=== PATIENT | male | born 1945 | race Caucasian/White ===

== ENCOUNTER 2017-06-11 09:59 | Emergency (ER) ==
[2017-06-11 10:08] VITALS: BP 166/90; TEMP 98.2; BMI 22.3
--- NOTE | 2017-06-11 10:28 | ED.PDOC ---
General ED Provider: Dr. RENETTA BARAKAT JR Chief Complaint: Respiratory Complaint Stated Complaint: PAIN IN HIS RIBS, AND HAVING DIFFICULTY BREATHING DEEPLY. PRODUCTIVE COUGH, UNSURE COLOR OF SPUTUM.[End]2-3 days. 98.2 69 20 96 166/90 . [ End ]cough wheeze uri inhalers Time Seen by Physician: 10:20 Mode of Arrival: Walk-In Information Source: Patient Exam Limitations: No limitations Primary Care Provider: JESSY JULIO Nursing and Triage Documentation Reviewed and Agree: No Review of Systems - Review Of Systems Constitutional: Reports: Malaise Eyes: Reports: No symptoms Ears, Nose, Mouth, Throat: Reports: No symptoms Respiratory: Reports: Cough, Short of air, Wheezing Cardiac: Reports: Chest pain GI: Reports: No symptoms, Abdominal pain : Reports: No symptoms Musculoskeletal: Reports: No symptoms, Other (chest wall pain) Skin: Reports: No symptoms Neurological: Reports: No symptoms Endocrine: Reports: No symptoms Hematologic/Lymphatic: Reports: No symptoms All Other Systems: Other Past Medical History - Past Medical History Endocrine: Reports: None Cardiovascular: Reports: CAD, [place], CHF Respiratory: Reports: COPD Hematological: Reports: None Gastrointestinal: Reports: None Genitourinary: Reports: None Neuro/Psych: Reports: None Musculoskeletal: Reports: Arthritis (on the neck with pinched nerve ) Cancer: Reports: None Other Pertinent Past Medical History: son recently disappeared ? - Surgical History General Surgical History: Reports: Stent (CARDIAC STENT), Orthopedic (Knee surgery ) - Family History Family History: Reports: Heart - Social History Smoking Status: Current every day smoker Hx Substance Use: No - Immunizations Tetanus Shot up to Date: No Physical Exam - Physical Exam Appearance: Well-appearing, Thin Pain Distress: Moderate Eyes: ABHINAV, EOMI, Conjunctiva clear ENT: Ears normal, Nose normal, Oropharynx normal Neck: Supple Respiratory: Airway patent, Breath sounds equal, Breath sounds diminished, Rhonchi, Wheezes Cardiovascular: RRR, Pulses normal, No rub, No murmur GI/: Soft, No masses, Bowel sounds normal, No Organomegaly, Tender Musculoskeletal: Normal strength, ROM intact, No edema, No calf tenderness Skin: Warm, Dry, Normal color Neurological: Sensation intact, Motor intact, Reflexes intact, Cranial nerves intact, Alert, Oriented Psychiatric: Affect appropriate, Mood appropriate Critical Care Note - Critical Care Note Total Time (mins): 20 Course - Course Hematology/Chemistry: 06/11/17 10:50 06/11/17 10:50 Orders, Labs, Meds: Lab Review 06/11/17 06/11/17 06/11/17 10:35 10:45 10:50 WBC 6.35 RBC 5.14 Hgb 15.7 Hct 45.5 MCV 88.5 MCH 30.5 MCHC 34.5 RDW Coeff of Lyn 13.2 Plt Count 239 Immature Gran % (Auto) 0.9 Neut % (Auto) 56.6 Lymph % (Auto) 28.5 Jones % (Auto) 10.9 H Eos % (Auto) 2.2 Baso % (Auto) 0.9 Immature Gran # (Auto) 0.1 Neut # 3.6 Lymph # 1.8 Jones # 0.7 Eos # 0.1 Baso # 0.1 Puncture Site Rrad O2 Saturation 94.0 L ABG pH 7.393 ABG pCO2 40.5 ABG pO2 72.0 L ABG HCO3 24.7 ABG Total CO2 26 ABG Base Excess 0 Michel Test + FiO2 % 21.0 Sodium Potassium Chloride Carbon Dioxide Anion Gap BUN Creatinine Estimated GFR (MDRD) BUN/Creatinine Ratio Glucose Calcium Total Bilirubin AST ALT Alkaline Phosphatase Total Creatine Kinase Troponin I Total Protein Albumin Globulin Albumin/Globulin Ratio Amylase Lipase Urine Color Urine Clarity Urine pH Ur Specific [place] Urine Protein Urine Glucose (UA) Urine Ketones Urine Blood Urine Nitrite Urine Bilirubin Urine Urobilinogen Ur Leukocyte Esterase Urine Microscopic RBC Urine Microscopic WBC Ur Squamous Epith Cells Urine Bacteria Urine Mucus Urine Sperm Influenza A (Rapid) Negative Influenza B (Rapid) Negative 06/11/17 06/11/17 10:50 11:15 WBC RBC Hgb Hct MCV MCH MCHC RDW Coeff of Lyn Plt Count Immature Gran % (Auto) Neut % (Auto) Lymph % (Auto) [place] % (Auto) Eos % (Auto) Baso % (Auto) Immature Gran # (Auto) Neut # Lymph # Jones # Eos # Baso # Puncture Site O2 Saturation ABG pH ABG pCO2 ABG pO2 ABG HCO3 ABG Total CO2 ABG Base Excess Michel Test FiO2 % Sodium 133 L Potassium 3.4 L Chloride 96 L Carbon Dioxide 31 Anion Gap 9.4 BUN 8 Creatinine 0.71 Estimated GFR (MDRD) 110.00 BUN/Creatinine Ratio 11.26 Glucose 83 Calcium 9.8 Total Bilirubin 0.73 AST 13 L ALT 9 L Alkaline Phosphatase 120 H Total Creatine Kinase 20 Troponin I < 0.0100 Total Protein 6.7 Albumin 3.4 Globulin 3.3 Albumin/Globulin Ratio 1.03 Amylase 81 Lipase 17 Urine Color Dark Urine Clarity Clear Urine pH 7.0 Ur Specific [place] 1.020 Urine Protein Negative Urine Glucose (UA) Negative Urine Ketones Negative Urine Blood Negative Urine Nitrite Positive Urine Bilirubin Negative Urine Urobilinogen 1.0 Ur Leukocyte Esterase 1+ Urine Microscopic RBC 2-5 Urine Microscopic WBC 5-10 Ur Squamous Epith Cells Not present Urine Bacteria 1+ Urine Mucus 2+ Urine Sperm Trace Influenza A (Rapid) Influenza B (Rapid) Orders Category Date Time Status ABG DRAW REQUEST Stat CARDIO 06/11/17 10:36 Completed EKG-(ED ONLY) Stat CARDIO 06/11/17 10:34 Completed ED DATABASE ANALYST APPLIED EMERGENCY 06/11/17 10:33 Active ED IV/MEDIPORT/POWERPORT .ONCE EMERGENCY 06/11/17 10:33 Active ABG Stat LAB 06/11/17 10:35 Completed AMYLASE Stat LAB 06/11/17 10:50 Completed BLOOD CULTURE Stat LAB 06/11/17 11:00 Received CBC W/ AUTO DIFF Stat LAB 06/11/17 10:50 Completed COMPREHENSIVE METABOLIC PANEL Stat LAB 06/11/17 10:50 Completed CREATINE KINASE Stat LAB 06/11/17 10:50 Completed LIPASE Stat LAB 06/11/17 10:50 Completed MOLECULAR GROUP A STREP Stat LAB 06/11/17 10:45 Results RAPID FLU A/B Stat LAB 06/11/17 10:45 Completed RAPID STREP SCREEN [STREP SCREEN] Stat LAB 06/11/17 10:45 Results SPUTUM CULTURE Stat LAB 06/11/17 10:45 Received TROPONIN I Stat LAB 06/11/17 10:50 Completed URINALYSIS C & S IF INDICATED Stat LAB 06/11/17 11:15 Completed URINE CULTURE Stat LAB 06/11/17 11:15 Received 0.9 % Sodium Chloride [Saline Flush] MEDS 06/11/17 10:33 Active 1 syr IVF PRN PRN Nitrofurantoin Monohyd/M-Cryst [Macrobid] MEDS 06/11/17 11:45 Discontinued 100 mg PO ONCE STA Tramadol HCl [Ultram] MEDS 06/11/17 11:42 Discontinued 50 mg PO ONCE STA CHEST, 2 VIEWS PA & LAT Stat RADS 06/11/17 10:35 Completed Medications Generic Name Dose Route Start Last Admin Trade Name Freq PRN Reason Stop Dose Admin Sodium Chloride 1 syr 06/11/17 10:33 06/11/17 10:48 Saline Flush IVF 1 syr PRN PRN Administration To flush IV Discontinued Medications Generic Name Dose Route Start Last Admin Trade Name Alberto PRN Reason Stop Dose Admin Nitrofurantoin Macrocrystals 100 mg 06/11/17 11:45 06/11/17 11:51 Macrobid PO 06/11/17 11:46 100 mg ONCE STA Administration Tramadol HCl 50 mg 06/11/17 11:42 06/11/17 11:47 Ultram PO 06/11/17 11:43 50 mg ONCE STA Administration Vital Signs: Temp Pulse Resp BP Pulse Ox 06/11/17 10:00 98.2 F 69 20 166/90 H 96 Departure - Departure Time of Disposition: 11:43 Disposition: HOME SELF-CARE Discharge Problem: UTI (urinary tract infection) Qualifiers: Urinary tract infection type: acute cystitis Hematuria presence: without hematuria Qualified Code(s): N30.00 - Acute cystitis without hematuria Instructions: Urinary Tract Infection in Men (ED) Condition: Good Pt referred to PMD for follow-up: Yes Additional Instructions: Please follow-up with Dr. Julio in 1-5 days. Macrobid for infection Ultram for pain Prescriptions: Nitrofurantoin Monohyd/M-Cryst [Macrobid] 100 mg PO BID #14 capsule Tramadol HCl [Ultram] 50 mg PO Q6H PRN #14 tablet PRN Reason: PAIN Allergies/Adverse Reactions: Allergies No Known Allergies Allergy (Verified 06/11/17 10:05) Home Medications: Ambulatory Orders Atenolol/Chlorthalidone [Atenolol-Chlorthal 50-25 Tb] 0.5 tab PO DAILY 08/30/14 Atorvastatin Calcium 40 mg PO DAILY 08/30/14 Esomeprazole Magnesium [Nexium] 40 mg PO DAILY 08/30/14 Nitroglycerin [Nitrostat] 0.4 mg SL PRN PRN 08/30/14 Potassium Chloride [Klor-Con 10] 20 meq PO BID 08/30/14 Sotalol HCl [Sotalol] 80 mg PO BID 08/30/14 Albuterol Sulfate [Proair Hfa] 2 puff IH Q4H PRN 07/14/15 Aspirin [Aspirin Chewable] 81 mg PO DAILYWM 07/14/15 Calcium Carb, Citrate/Vit D3 [Citracal + D ER Tablet] 1 each PO DAILY 07/14/15 Fenofibrate Nanocrystallized [Tricor] 145 mg PO DAILY 07/14/15 Hydrocodone/Acetaminophen [[place] 5-325 Tablet] 1 tab PO Q6HR PRN #12 tablet 12/22 Tiotropium [place] [Spiriva] 18 mcg IH DAILY 07/14/15 Cyclobenzaprine HCl 10 mg PO TID 06/11/17 Nitrofurantoin Monohyd/M-Cryst [Macrobid] 100 mg PO BID #14 capsule 06/11/17 Tramadol HCl [Ultram] 50 mg PO Q6H PRN #14 tablet 06/11/17
[2017-06-11 10:52] LABS: ABG BASE EXCESS 0 (-2.0-2.0); ABG PCO2 40.5 mmHg (35-45); ABG PH 7.393 (7.35-7.45)
[2017-06-11 10:53] LABS: ABG HCO3 24.7 (22.0-26.0); ABG TCO2 26 (22.0-28.0)
[2017-06-11 11:09] LABS: BASOPHILS # (AUTO) 0.1 K/uL (0-0.2); BASOPHILS % (AUTO) 0.9 % (0.0-3.0); EOSINOPHILS # (AUTO) 0.1 K/ul (0.0-0.7); EOSINOPHILS % (AUTO) 2.2 % (0.0-7.0); HEMATOCRIT 45.5 % (42.0-52.0); HEMOGLOBIN 15.7 g/dl (14.0-18.0); IMMATURE GRANULOCYTE % (AUTO) 0.9 % (0.0-5.0); LYMPHOCYTES # (AUTO) 1.8 K/uL (0.60-3.4); LYMPHOCYTES % (AUTO) 28.5 (10.0-50.0); MEAN CORPUSCULAR HEMOGLOBIN 30.5 pg (27.0-31.0); MEAN CORPUSCULAR HGB CONC 34.5 (31.8-35.4); MEAN CORPUSCULAR VOLUME 88.5 fl (80.0-94.0); MONOCYTES # (AUTO) 0.7 K/uL (0.4-2.0); MONOCYTES % (AUTO) 10.9 (0-10); NEUTROPHILS # (AUTO) 3.6 K/ul (2.0-6.9); NEUTROPHILS % (AUTO) 56.6; PLATELET COUNT 239 10^3/uL (140-440); RED BLOOD COUNT 5.14 10^6/ul (4.70-6.10); WHITE BLOOD COUNT 6.35 K/ul (4.2-10.2)
[2017-06-11 11:26] LABS: BILIRUBIN,URINE Negative (NEGATIVE); KETONES,URINE Negative (NEGATIVE); LEUKOCYTE ESTERASE ,URINE 1+ (NEGATIVE); NITRITE,URINE Positive (NEGATIVE); PROTEIN,URINE Negative (NEGATIVE); URINE, BLOOD Negative (NEGATIVE)
--- NOTE | 2017-06-11 11:26 | DI ---
EXAM: Chest two views HISTORY: Cough, short of air COMPARISON: 07/14/2015 TECHNIQUE: Two views of the chest were performed FINDINGS: Lungs are hyperinflated. No airspace consolidation. There is no pleural effusion or pneu mothorax. The heart is normal in size. The mediastinal contour is normal, noting atherosclerosis. There are no acute abnormalities of the bones. IMPRESSION: 1. No acute cardiopulmonary process. 2. Chronic obstructive pulmonary disease
[2017-06-11 11:28] LABS: FLU INTERNAL QC INTERNAL QC VALID; RAPID FLU A NEGATIVE (NEGATIVE); RAPID FLU B NEGATIVE (NEGATIVE)
[2017-06-11 11:33] LABS: ALANINE AMINOTRANSFERASE 9 U/L (12-78); ALBUMIN 3.4 g/dL (3.4-5.0); ALBUMIN/GLOBULIN RATIO 1.03; ALKALINE PHOSPHATASE 120 U/L (56-119); AMYLASE 81 U/L (25-115); ANION GAP 9.4; ASPARTATE AMINO TRANSFERASE 13 U/L (15-37); BILIRUBIN,TOTAL 0.73 mg/dL (0.00-1.20); BLOOD UREA NITROGEN 8 mg/dL (7-18); BUN/CREATININE RATIO 11.26; CALCIUM 9.8 mg/dL (8.2-10.2); CARBON DIOXIDE 31 mmol/L (23-31); CHLORIDE 96 mmol/L (98-107); CREATINE KINASE 20 U/L; CREATININE 0.71 mg/dL (0.60-1.10); GLUCOSE 83 mg/dL (82-115); LIPASE 17 U/L (8-78); POTASSIUM 3.4 mmol/L (3.5-5.1); SODIUM 133 mmol/L (136-145); TOTAL PROTEIN 6.7 g/dL (5.8-8.1)
[2017-06-11 11:34] LABS: ADD URINE MICROSCOPIC YES
[2017-06-11 11:39] LABS: BACTERIA,URINE 1+ (NOT PRESENT)
[2017-06-11 11:40] LABS: SPERM,URINE TRACE (NOT PRESENT)
[2017-06-11] MEDS ORDERED: ULTRAM PO STA (11:42)
[2017-06-11] MEDS ORDERED: MACROBID PO STA (11:45)
== END 2017-06-11 12:30 | disposition home or self-care (01) ==
LOC: ED 09:59
DX: N30.00 Acute cystitis without hematuria (principal); R07.89 Other chest pain; R05 Cough; R06.02 Shortness of breath; R06.2 Wheezing; I25.10 Atherosclerotic heart disease of native coronary artery without angina pectoris; I50.9 Heart failure, unspecified; J44.9 Chronic obstructive pulmonary disease, unspecified; I25.2 Old myocardial infarction; F17.210 Nicotine dependence, cigarettes, uncomplicated; Z79.899 Other long term (current) drug therapy
CPT/HCPCS: 36415; 80053; 81001; 82150; 82550; 82803; 83690; 84484; 85025; 87040; 87070; 87086; 87186; 87651; 87804; 87880; 93005; 93010; 99284

== ENCOUNTER 2017-06-23 09:56 | Outpatient (CLI) ==
[2017-06-23] MEDS ORDERED: PROLIA SUBCUT STA (10:06)
[2017-06-23 10:11] VITALS: BP 118/71; TEMP 97.8
== END 2017-06-23 09:57 | disposition home or self-care (01) ==
LOC: OPMED 09:56
PROVIDERS: ATTEND Internal Medicine
DX: M81.0 Age-related osteoporosis without current pathological fracture (principal); Z87.81 Personal history of (healed) traumatic fracture
CPT/HCPCS: 96372

== ENCOUNTER 2017-06-24 11:46 | Emergency (ER) ==
[2017-06-24 11:46] VITALS: BMI 22.3
[2017-06-24 11:50] VITALS: BP 170/84; TEMP 96.8
--- NOTE | 2017-06-24 11:57 | ED.PDOC ---
General ED Provider: Dr. RENETTA BARAKAT JR Chief Complaint: Hypertension Stated Complaint: bp high ; shortness of breath, tightness to abdomen this morning called dr hartman and was told to come to er to be evaluated [ End ]96.8 74 22 95% 170/84 01/17 Time Seen by Physician: 11:57 Mode of Arrival: Walk-In Information Source: Patient Exam Limitations: No limitations Primary Care Provider: JESSY HARTMAN Nursing and Triage Documentation Reviewed and Agree: No Review of Systems - Review Of Systems Constitutional: Reports: Malaise Eyes: Reports: No symptoms Ears, Nose, Mouth, Throat: Reports: No symptoms Respiratory: Reports: Short of air Cardiac: Reports: No symptoms GI: Reports: Abdominal pain : Reports: No symptoms Musculoskeletal: Reports: No symptoms Skin: Reports: No symptoms Neurological: Reports: No symptoms Endocrine: Reports: No symptoms Hematologic/Lymphatic: Reports: No symptoms All Other Systems: Other Past Medical History - Past Medical History Endocrine: Reports: None Cardiovascular: Reports: CAD, [place], CHF Respiratory: Reports: COPD Hematological: Reports: None Gastrointestinal: Reports: None Genitourinary: Reports: None Neuro/Psych: Reports: None Musculoskeletal: Reports: Arthritis (on the neck with pinched nerve ) Cancer: Reports: None Other Pertinent Past Medical History: son recently disappeared ? - Surgical History General Surgical History: Reports: Stent (CARDIAC STENT), Orthopedic (Knee surgery ) - Family History Family History: Reports: Heart - Social History Smoking Status: Current every day smoker, Heavy tobacco smoker Hx Substance Use: No Alcohol Screening: None Physical Exam - Physical Exam Appearance: Ill-appearing, Thin Ill-appearing: Mild Pain Distress: Mild Eyes: ABHINAV, EOMI, Conjunctiva clear ENT: Ears normal, Nose normal, Oropharynx normal Neck: Supple Respiratory: Airway patent, Breath sounds equal, Respirations nonlabored, Rhonchi Cardiovascular: RRR, Pulses normal, No rub, No murmur GI/: Soft, Nontender, No masses, Bowel sounds normal, No Organomegaly Musculoskeletal: Normal strength, ROM intact, No edema, No calf tenderness ( back pain) Skin: Warm, Dry, Normal color Neurological: Sensation intact, Motor intact, Reflexes intact, Cranial nerves intact, Alert, Oriented Psychiatric: Affect appropriate, Mood appropriate Interpretation - EKG Interpretation Time of EKG #1: 12:12 Rate: Normal Rhythm: Sinus [place]: NL ST Segment: Other EKG Comparison: No significant changes (06/11/17) Critical Care Note - Critical Care Note Total Time (mins): 30 Course - Course Hematology/Chemistry: 06/24/17 12:10 06/24/17 12:10 Orders, Labs, Meds: Lab Review 06/24/17 06/24/17 06/24/17 11:57 12:10 12:10 WBC 7.81 RBC 5.29 Hgb 16.1 Hct 46.0 MCV 87.0 MCH 30.4 MCHC 35.0 RDW Coeff of Lyn 12.7 Plt Count 247 Immature Gran % (Auto) 0.6 Neut % (Auto) 66.6 Lymph % (Auto) 20.0 [place] % (Auto) 9.6 Eos % (Auto) 2.6 Baso % (Auto) 0.6 Immature Gran # (Auto) 0.1 Neut # 5.2 Lymph # 1.6 [place] # 0.8 Eos # 0.2 Baso # 0.1 D-Dimer (Manual) Puncture Site Rrad O2 Saturation 94.0 L ABG pH 7.390 ABG pCO2 41.1 ABG pO2 72.0 L ABG HCO3 24.9 ABG Total CO2 26 ABG Base Excess 0 Michel Test + FiO2 % 21.0 Sodium 130 L Potassium 3.6 Chloride 93 L Carbon Dioxide 28 Anion Gap 12.6 BUN 8 Creatinine 0.66 Estimated GFR (MDRD) 119.00 BUN/Creatinine Ratio 12.12 Glucose 97 Calcium 9.3 Total Bilirubin 0.84 AST 15 ALT 14 Alkaline Phosphatase 116 Total Creatine Kinase 19 Troponin I 0.0150 B-Natriuretic Peptide Total Protein 7.1 Albumin 3.5 Globulin 3.6 Albumin/Globulin Ratio 0.97 Urine Color Urine Clarity Urine pH Ur Specific [place] Urine Protein Urine Glucose (UA) Urine Ketones Urine Blood Urine Nitrite Urine Bilirubin Urine Urobilinogen Ur Leukocyte Esterase Urine Microscopic RBC Ur Squamous Epith Cells 06/24/17 06/24/17 06/24/17 12:10 12:10 14:30 WBC RBC Hgb Hct MCV MCH MCHC RDW Coeff of Lyn Plt Count Immature Gran % (Auto) Neut % (Auto) Lymph % (Auto) [place] % (Auto) Eos % (Auto) Baso % (Auto) Immature Gran # (Auto) Neut # Lymph # [place] # Eos # Baso # D-Dimer (Manual) 463.22 Puncture Site O2 Saturation ABG pH ABG pCO2 ABG pO2 ABG HCO3 ABG Total CO2 ABG Base Excess Michel Test FiO2 % Sodium Potassium Chloride Carbon Dioxide Anion Gap BUN Creatinine Estimated GFR (MDRD) BUN/Creatinine Ratio Glucose Calcium Total Bilirubin AST ALT Alkaline Phosphatase Total Creatine Kinase Troponin I B-Natriuretic Peptide 142 H Total Protein Albumin Globulin Albumin/Globulin Ratio Urine Color Yellow Urine Clarity Clear Urine pH 7.5 Ur Specific [place] 1.010 Urine Protein Negative Urine Glucose (UA) Negative Urine Ketones Negative Urine Blood Trace-intact Urine Nitrite Negative Urine Bilirubin Negative Urine Urobilinogen 0.2 Ur Leukocyte Esterase Negative Urine Microscopic RBC 0-2 Ur Squamous Epith Cells Not present Orders Category Date Time Status ABG DRAW REQUEST Stat CARDIO 06/24/17 11:58 Completed EKG-(ED ONLY) Stat CARDIO 06/24/17 11:57 Completed NPO REMINDER: IMAGING ONCE CARE 06/24/17 12:31 Active ABG Stat LAB 06/24/17 11:57 Completed B-TYPE NATRIURETIC PEPTIDE Stat LAB 06/24/17 12:10 Completed CBC W/ AUTO DIFF Stat LAB 06/24/17 12:10 Completed COMPREHENSIVE METABOLIC PANEL Stat LAB 06/24/17 12:10 Completed CREATINE KINASE Stat LAB 06/24/17 12:10 Completed D-DIMER Stat LAB 06/24/17 12:10 Completed TROPONIN I Stat LAB 06/24/17 12:10 Completed UA [URINALYSIS C & S IF INDICATED] Stat LAB 06/24/17 14:30 Completed CHEST, 1V AP ONLY Stat RADS 06/24/17 11:[address] ABDOMEN/PELVIS W/WO CONTRAS Stat RADS 06/24/17 12:30 Completed Vital Signs: Temp Pulse Resp BP Pulse Ox 06/24/17 11:46 96.8 F L 74 22 170/84 H 95 Departure - Departure Time of Disposition: 14:14 Disposition: HOME SELF-CARE Discharge Problem: HTN, goal below 140/90 Abdominal pain Qualifiers: Abdominal location: generalized Qualified Code(s): R10.84 - Generalized abdominal pain Instructions: Abdominal Pain (ED), Hypertension (ED) Condition: Good Pt referred to PMD for follow-up: Yes Additional Instructions: Please follow-up with Dr. Hartman in 1-2 days. follow up Thursday increase sotalol to 120mg twice a day return if fever over 101.0 if urinary symptoms Prescriptions: Sotalol HCl [Sotalol] 120 mg PO BIDAC #60 tablet Allergies/Adverse Reactions: Allergies No Known Allergies Allergy (Verified 06/24/17 11:50) Home Medications: Ambulatory Orders Atenolol/Chlorthalidone [Atenolol-Chlorthal 50-25 Tb] 0.5 tab PO DAILY 08/30/14 Atorvastatin Calcium 40 mg PO DAILY 08/30/14 Esomeprazole Magnesium [Nexium] 40 mg PO DAILY 08/30/14 Nitroglycerin [Nitrostat] 0.4 mg SL PRN PRN 08/30/14 Potassium Chloride [Klor-Con 10] 20 meq PO BID 08/30/14 Sotalol HCl [Sotalol] 80 mg PO BID 08/30/14 Albuterol Sulfate [Proair Hfa] 2 puff IH Q4H PRN 07/14/15 Aspirin [Aspirin Chewable] 81 mg PO DAILYWM 07/14/15 Calcium Carb, Citrate/Vit D3 [Citracal + D ER Tablet] 1 each PO DAILY 07/14/15 Fenofibrate Nanocrystallized [Tricor] 145 mg PO DAILY 07/14/15 Tiotropium [place] [Spiriva] 18 mcg IH DAILY 07/14/15 Cyclobenzaprine HCl 10 mg PO TID 06/11/17 Tramadol HCl [Ultram] 50 mg PO Q6H PRN #14 tablet 06/11/17 Ciprofloxacin HCl [Cipro] 500 mg PO Q12HR 06/24/17 Fluticasone/Vilanterol [Breo Ellipta Inhaler] 1 each IH DAILY 06/24/17 Gabapentin [Neurontin] 600 mg PO TID 06/24/17 Hydrocodone Bit/Acetaminophen [[place] 10-325] 1 each PO Q6HR PRN 06/24/17 Sotalol HCl [Sotalol] 120 mg PO BIDAC #60 tablet 06/24/17
[2017-06-24 12:17] LABS: ABG BASE EXCESS 0 (-2.0-2.0); ABG HCO3 24.9 (22.0-26.0); ABG PCO2 41.1 mmHg (35-45); ABG TCO2 26 (22.0-28.0)
[2017-06-24 12:18] LABS: BASOPHILS # (AUTO) 0.1 K/uL (0-0.2); BASOPHILS % (AUTO) 0.6 % (0.0-3.0); EOSINOPHILS # (AUTO) 0.2 K/ul (0.0-0.7); EOSINOPHILS % (AUTO) 2.6 % (0.0-7.0); HEMOGLOBIN 16.1 g/dl (14.0-18.0); IMMATURE GRANULOCYTE % (AUTO) 0.6 % (0.0-5.0); LYMPHOCYTES # (AUTO) 1.6 K/uL (0.60-3.4); MEAN CORPUSCULAR HEMOGLOBIN 30.4 pg (27.0-31.0); MONOCYTES # (AUTO) 0.8 K/uL (0.4-2.0); MONOCYTES % (AUTO) 9.6 (0-10); NEUTROPHILS # (AUTO) 5.2 K/ul (2.0-6.9); NEUTROPHILS % (AUTO) 66.6; PLATELET COUNT 247 10^3/uL (140-440); RED BLOOD COUNT 5.29 10^6/ul (4.70-6.10); WHITE BLOOD COUNT 7.81 K/ul (4.2-10.2)
--- NOTE | 2017-06-24 12:42 | DI ---
EXAM: Chest one view, frontal view only. HISTORY: Chest pain. COMPARISON: 06/11/2017. FINDINGS: The heart size is normal. There is no pulmonary vascular congestion. The lungs are clear . No pleural effusion or pneumothorax is seen. No acute osseous abnormality is identified. Aortic atherosclerotic calcifications are present. Since the prior study, there has been no significant inte rval change. IMPRESSION: No acute cardiopulmonary process.
[2017-06-24 12:45] LABS: ALBUMIN 3.5 g/dL (3.4-5.0); ALBUMIN/GLOBULIN RATIO 0.97; ANION GAP 12.6; BILIRUBIN,TOTAL 0.84 mg/dL (0.00-1.20); BUN/CREATININE RATIO 12.12; CALCIUM 9.3 mg/dL (8.2-10.2); CREATININE 0.66 mg/dL (0.60-1.10); POTASSIUM 3.6 mmol/L (3.5-5.1); TOTAL PROTEIN 7.1 g/dL (5.8-8.1); TROPONIN I 0.015 ng/ml (0.0000-0.4000)
--- NOTE | 2017-06-24 13:24 | CT ---
Exam: CT of the abdomen pelvis without intravenous contrast followed by CT of the abdomen pelvis wit h intravenous contrast. Comparison: None available. Reason for exam: Abdominal pressure with history of AAA. FINDINGS: Emphysematous disease is seen within the partially imaged lung bases. There is atelectasis and scarring in the right lung base. The liver, gallbladder, spleen, adrenal glands, and pancreas appear grossly unremarkable. Stones are seen in both the left and right renal collecting systems measuring up to 5.3 mm on the lef t and 2 mm on the right. No hydronephrosis, hydroureter or perinephric inflammatory changes in either kidney. There is thickening of the proximal stomach wall. No focal small bowel dilatation or transition point. No intra-abdominal free air or pelvic free fluid. High density material is seen within the colon. Prostate appears prominent in size with coarse calci fications. The prostate causes impression on the posterior urinary bladder. There is moderate to severe degenerative disease seen throughout the lumbar spine with intervertebral body disc space height loss, Schmorl's nodes, and osteophyte formation. Similar appearing compression deformities are seen at T11, T12, L2, and L3. There is a similar appearing infrarenal abdominal aortic aneurysm measuring up to 3.2 cm. Impression: 1. Similar appearing infrarenal abdominal aortic aneurysm measuring up to 3.2 cm. 2. Nephrolithiasis without evidence of obstruction. 3. Emphysematous disease with scarring in the lung bases. 4. Similar appearing compression deformities with moderate to severe degenerative disease in the lum bar spine
[2017-06-24 14:54] LABS: BILIRUBIN,URINE Negative (NEGATIVE); KETONES,URINE Negative (NEGATIVE); LEUKOCYTE ESTERASE ,URINE Negative (NEGATIVE); NITRITE,URINE Negative (NEGATIVE); PH,URINE 7.5 (5-9); PROTEIN,URINE Negative (NEGATIVE); URINE, BLOOD Trace-intact (NEGATIVE)
[2017-06-24 14:56] LABS: ADD URINE MICROSCOPIC YES
== END 2017-06-24 15:06 | disposition home or self-care (01) ==
LOC: ED 11:46
DX: I10 Essential (primary) hypertension (principal); R10.84 Generalized abdominal pain; R06.02 Shortness of breath; I25.10 Atherosclerotic heart disease of native coronary artery without angina pectoris; I25.2 Old myocardial infarction; I50.9 Heart failure, unspecified; Z95.5 Presence of coronary angioplasty implant and graft; F17.210 Nicotine dependence, cigarettes, uncomplicated; Z79.899 Other long term (current) drug therapy
CPT/HCPCS: 36415; 80053; 81001; 82550; 82803; 83880; 84484; 85025; 85379; 93005; 93010; 99283

== ENCOUNTER 2017-07-24 17:16 | Inpatient (IN) ==
[2017-07-24] MEDS ORDERED: DUONEB NEB STA (17:32)
[2017-07-24] MEDS ORDERED: SOLU-MEDROL 125 MG IVP STA (17:32)
[2017-07-24] MEDS ORDERED: BETAPACE PO STA (18:43)
--- NOTE | 2017-07-24 18:46 | ED.PDOC ---
General ED Provider: Dr. PAULINE FONSECA Chief Complaint: Shortness of Air Stated Complaint: SHORTNESS OF BREATH Time Seen by Physician: 17:20 Mode of Arrival: Walk-In Information Source: Patient Exam Limitations: No limitations Primary Care Provider: JESSY JULIO Referred to ED by: Other (CHEST PAIN, SHORT OF AIR) Nursing and Triage Documentation Reviewed and Agree: Yes (SEEN WITH STAFF) Respiratory Complaint Exam - Shortness of Air Complaint/Exam Onset/Duration: 1 DAY Symptoms Are: Still present Timing: Intermittent Initial Severity: Mild Current Severity: Mild Character: Reports: Dyspnea at rest Aggravating: Reports: None Alleviating: Reports: Bronchodilators Associated Signs and Symptoms: Reports: Cough. Denies: Wheezing, Chest pain with cough, Chest pain, Fever, Chills, Diaphoresis, Nasal congestion, Dizziness , Calf pain, Calf swelling, Edema, Rapid breathing, Labored breathing, Decreased intake History of Healthcare-Acquired Pneumonia: No Pulmonary Embolism Risk Factors: Reports: None Cardiac Risk Factors: Reports: Prior PA, CAD, Hypertension Pseudomonas Risk Factors: Reports: None Tuberculosis Risk Factors: Reports: None Home Oxygen Use: No Recent Stress Test: No Recent Echo/LV Function: No Respiratory Distress: None Stridor Present: No Tracheal Deviation: No Subcutaneous Emphysema: No Accessory Muscle Use: No Retractions: Not Present Diminished Breath Sounds: No Prolonged Expiratory Phase: No Unable to Speak Full Sentences: No Fatigue: No Leg Swelling: No Cristiano's Sign Present: No Grunting Respirations: No Kussmaul Respirations: No Differential Diagnoses: Pneumonia, Bronchitis Quality Indicators for AMI: EKG in 10min. Quality Indicators for Cardiac Chest Pain: EKG in 10min. Quality Indicator For Non-Traumatic Chest Pain/Syncope: EKG Performed Related Surgical History: Reports: None Review of Systems - Review Of Systems Constitutional: Reports: No symptoms Eyes: Reports: No symptoms Ears, Nose, Mouth, Throat: Reports: No symptoms Respiratory: Reports: No symptoms Cardiac: Reports: Irregular heart rate, Palpitations GI: Reports: No symptoms : Reports: No symptoms Musculoskeletal: Reports: No symptoms Skin: Reports: No symptoms Neurological: Reports: No symptoms Endocrine: Reports: No symptoms Hematologic/Lymphatic: Reports: No symptoms All Other Systems: Reviewed and Negative Past Medical History - Past Medical History Previously Healthy: Yes Endocrine: Reports: None Cardiovascular: Reports: CAD, PA, CHF Respiratory: Reports: COPD Hematological: Reports: None Gastrointestinal: Reports: None Genitourinary: Reports: None Neuro/Psych: Reports: None Musculoskeletal: Reports: Arthritis (on the neck with pinched nerve ) Cancer: Reports: None Other Pertinent Past Medical History: son recently disappeared ? - Surgical History General Surgical History: Reports: Stent (CARDIAC STENT), Orthopedic (Knee surgery ) - Family History Family History: Reports: Heart - Social History Smoking Status: Current every day smoker, Heavy tobacco smoker Hx Substance Use: No Alcohol Screening: None - Immunizations Tetanus Shot up to Date: No Physical Exam - Physical Exam Appearance: Well-appearing, No pain distress, Well-nourished Eyes: ABHINAV, EOMI, Conjunctiva clear ENT: Ears normal, Nose normal, Oropharynx normal Respiratory: Airway patent, Breath sounds clear, Breath sounds equal, Respirations nonlabored Cardiovascular: RRR, Pulses normal, No rub, No murmur, Irregular rhythm, Tachycardia GI/: Soft, Nontender, No masses, Bowel sounds normal, No Organomegaly Musculoskeletal: Normal strength, ROM intact, No edema, No calf tenderness Skin: Warm, Dry, Normal color Neurological: Sensation intact, Motor intact, Reflexes intact, Cranial nerves intact, Alert, Oriented Psychiatric: Affect appropriate, Mood appropriate Critical Care Note - Critical Care Note Total Time (mins): 0 Course - Course Hematology/Chemistry: 07/24/17 17:54 07/24/17 17:54 Orders, Labs, Meds: Lab Review 07/24/17 07/24/17 07/24/17 17:54 17:54 17:54 WBC 13.45 H RBC 5.13 Hgb 15.6 Hct 43.7 MCV 85.2 MCH 30.4 MCHC 35.7 H RDW Coeff of Lyn 12.9 Plt Count 262 Immature Gran % (Auto) 1.0 Neut % (Auto) 59.6 Lymph % (Auto) 27.7 Reynolds % (Auto) 10.1 H Eos % (Auto) 1.0 Baso % (Auto) 0.6 Immature Gran # (Auto) 0.1 Neut # 8.0 H Lymph # 3.7 H Reynolds # 1.4 Eos # 0.1 Baso # 0.1 D-Dimer (Manual) 305.47 Puncture Site O2 Saturation ABG pH ABG pCO2 ABG pO2 ABG HCO3 ABG Total CO2 ABG Base Excess Michel Test FiO2 % Sodium 131 L Potassium 3.1 L Chloride 100 Carbon Dioxide 18 L Anion Gap 16.1 BUN 10 Creatinine 0.64 Estimated GFR (MDRD) 124.00 BUN/Creatinine Ratio 15.62 Glucose 99 Lactic Acid Calcium 8.7 Total Bilirubin 1.47 H AST 15 ALT 10 L Alkaline Phosphatase 58 Total Creatine Kinase 34 Troponin I 0.0120 Total Protein 6.3 Albumin 3.3 L Globulin 3.0 Albumin/Globulin Ratio 1.10 Procalcitonin Urine Color Urine Clarity Urine pH Ur Specific [place] Urine Protein Urine Glucose (UA) Urine Ketones Urine Blood Urine Nitrite Urine Bilirubin Urine Urobilinogen Ur Leukocyte Esterase 07/24/17 07/24/17 07/24/17 17:54 17:54 18:09 WBC RBC Hgb Hct MCV MCH MCHC RDW Coeff of Lyn Plt Count Immature Gran % (Auto) Neut % (Auto) Lymph % (Auto) [place] % (Auto) Eos % (Auto) Baso % (Auto) Immature Gran # (Auto) Neut # Lymph # Reynolds # Eos # Baso # D-Dimer (Manual) Puncture Site R brachial O2 Saturation 97.0 ABG pH 7.484 H ABG pCO2 26.0 L ABG pO2 79.0 L ABG HCO3 19.6 L ABG Total CO2 20 L ABG Base Excess -4 L Michel Test + FiO2 % 21.0 Sodium Potassium Chloride Carbon Dioxide Anion Gap BUN Creatinine Estimated GFR (MDRD) BUN/Creatinine Ratio Glucose Lactic Acid 11.6 Calcium Total Bilirubin AST ALT Alkaline Phosphatase Total Creatine Kinase Troponin I Total Protein Albumin Globulin Albumin/Globulin Ratio Procalcitonin < 0.05 Urine Color Urine Clarity Urine pH Ur Specific [place] Urine Protein Urine Glucose (UA) Urine Ketones Urine Blood Urine Nitrite Urine Bilirubin Urine Urobilinogen Ur Leukocyte Esterase 07/24/17 18:23 WBC RBC Hgb Hct MCV MCH MCHC RDW Coeff of Lyn Plt Count Immature Gran % (Auto) Neut % (Auto) Lymph % (Auto) [place] % (Auto) Eos % (Auto) Baso % (Auto) Immature Gran # (Auto) Neut # Lymph # [place] # Eos # Baso # D-Dimer (Manual) Puncture Site O2 Saturation ABG pH ABG pCO2 ABG pO2 ABG HCO3 ABG Total CO2 ABG Base Excess Michel Test FiO2 % Sodium Potassium Chloride Carbon Dioxide Anion Gap BUN Creatinine Estimated GFR (MDRD) BUN/Creatinine Ratio Glucose Lactic Acid Calcium Total Bilirubin AST ALT Alkaline Phosphatase Total Creatine Kinase Troponin I Total Protein Albumin Globulin Albumin/Globulin Ratio Procalcitonin Urine Color Yellow Urine Clarity Clear Urine pH 8.5 Ur Specific [place] 1.015 Urine Protein Negative Urine Glucose (UA) Negative Urine Ketones Negative Urine Blood Negative Urine Nitrite Negative Urine Bilirubin Negative Urine Urobilinogen 0.2 Ur Leukocyte Esterase Negative Orders Category Date Time Status ABG DRAW REQUEST Stat CARDIO 07/24/17 18:09 Ordered EKG-(ED ONLY) Stat CARDIO 07/24/17 17:31 Ordered NEBULIZER TREATMENT Stat CARDIO 07/24/17 17:32 Ordered NPO REMINDER: IMAGING ONCE CARE 07/24/17 17:33 Active ED IV/MEDIPORT/POWERPORT .ONCE EMERGENCY 07/24/17 17:31 Active ABG Stat LAB 07/24/17 18:09 Completed CBC W/ AUTO DIFF Stat LAB 07/24/17 17:54 Completed COMPREHENSIVE METABOLIC PANEL Stat LAB 07/24/17 17:54 Completed CREATINE KINASE Stat LAB 07/24/17 17:54 Completed D-DIMER Stat LAB 07/24/17 17:54 Received LACTIC ACID Stat LAB 07/24/17 17:54 Completed PROCALCITONIN Stat LAB 07/24/17 17:54 Completed TROPONIN I Stat LAB 07/24/17 17:54 Completed URINALYSIS C & S IF INDICATED Stat LAB 07/24/17 18:23 Completed 0.9 % Sodium Chloride [Saline Flush] MEDS 07/24/17 17:30 Ordered 1 syr IVF PRN PRN Ipratropium/Albuterol Neb [Duoneb] MEDS 07/24/17 17:32 Discontinued 1 vial NEB ONCE STA Methylprednisolone Sod Succ/Pf [Solu-Medrol 125 mg] MEDS 07/24/17 17:32 Discontinued 125 mg IVP ONCE STA Sotalol HCl [Betapace] MEDS 07/24/17 18:43 Stat 80 mg PO ONCE STA CT CHEST PE PROTOCOL Stat RADS 07/24/17 17:33 Ordered Medications Generic Name Dose Route Start Last Admin Trade Name Freq PRN Reason Stop Dose Admin Sodium Chloride 1 syr 07/24/17 17:30 07/24/17 17:39 Saline Flush IVF 1 syr PRN PRN Administration To flush IV Discontinued Medications Generic Name Dose Route Start Last Admin Trade Name Freq PRN Reason Stop Dose Admin Albuterol/Ipratropium 1 vial 07/24/17 17:32 Duoneb NEB 07/24/17 17:33 ONCE STA Methylprednisolone Sodium Succinate 125 mg 07/24/17 17:32 07/24/17 17:39 Solu-Medrol 125 Mg IVP 07/24/17 17:33 125 mg ONCE STA Administration Sotalol HCl 80 mg 07/24/17 18:43 Betapace PO 07/24/17 18:44 ONCE STA Vital Signs: Temp Pulse Resp BP Pulse Ox 07/24/17 17:17 98.9 F 94 H 26 H 108/74 98 Departure - Departure Time of Disposition: 19:00 Disposition: ADMITTED INPATIENT Discharge Problem: Atrial fibrillation Qualifiers: Atrial fibrillation type: unspecified Qualified Code(s): I48.91 - Unspecified atrial fibrillation Instructions: A-fib (Atrial Fibrillation) (ED) Condition: Good Pt referred to PMD for follow-up: Yes Additional Instructions: Please call your Family Physician as soon as possible to schedule a follow-up appointment. Allergies/Adverse Reactions: Allergies No Known Allergies Allergy (Verified 07/24/17 17:20) Home Medications: Ambulatory Orders Atenolol/Chlorthalidone [Atenolol-Chlorthal 50-25 Tb] 0.5 tab PO DAILY 08/30/14 Atorvastatin Calcium 40 mg PO DAILY 08/30/14 Esomeprazole Magnesium [Nexium] 40 mg PO DAILY 08/30/14 Nitroglycerin [Nitrostat] 0.4 mg SL PRN PRN 08/30/14 Potassium Chloride [Klor-Con 10] 20 meq PO BID 08/30/14 Sotalol HCl [Sotalol] 80 mg PO BID 08/30/14 Albuterol Sulfate [Proair Hfa] 2 puff IH Q4H PRN 07/14/15 Aspirin [Aspirin Chewable] 81 mg PO DAILYWM 07/14/15 Calcium Carb, Citrate/Vit D3 [Citracal + D ER Tablet] 1 each PO DAILY 07/14/15 Fenofibrate Nanocrystallized [Tricor] 145 mg PO DAILY 07/14/15 Tiotropium [place] [Spiriva] 18 mcg IH DAILY 07/14/15 Cyclobenzaprine HCl 10 mg PO TID 06/11/17 Tramadol HCl [Ultram] 50 mg PO Q6H PRN #14 tablet 06/11/17 Ciprofloxacin HCl [Cipro] 500 mg PO Q12HR 06/24/17 Fluticasone/Vilanterol [Breo Ellipta Inhaler] 1 each IH DAILY 06/24/17 Gabapentin [Neurontin] 600 mg PO TID 06/24/17 Hydrocodone Bit/Acetaminophen [[place] 10-325] 1 each PO Q6HR PRN 06/24/17 Sotalol HCl [Sotalol] 120 mg PO BIDAC #60 tablet 06/24/17 Disposition Discussed With: Patient, Family
[2017-07-24] MEDS ORDERED: NITROSTAT SL PRN (18:50)
[2017-07-24] MEDS ORDERED: LANOXIN IVP STA (18:56)
[2017-07-24] MEDS: LOVENOX SUBCUT SCH ×2 (19:12→21:58)
--- NOTE | 2017-07-24 19:17 | CT ---
EXAM: CT pulmonary angiogram. HISTORY: Shortness of breath. Evaluate for pulmonary embolism. PROCEDURE: After the intravenous injection of contrast a CT pulmonary angiogram was performed with c ontiguous axial CT images of the chest and multiplanar and 3-D reformats. FINDINGS: There is normal enhancement of the pulmonary arteries with no evidence of pulmonary embolis m. The heart is within normal limits in size. The thoracic aorta is within normal limits in diamete r. There are atherosclerotic calcifications in the thoracic aorta. There are severe emphysematous ch anges throughout both lungs. There is bilateral bronchial wall thickening. There is minimal lingular and bibasilar atelectasis and/or pneumonia. Redemonstrated are multilevel compression fractures in t he thoracic and lumbar spine compared with CT of 06/17/2017. Impression: No evidence of pulmonary embolism. Minimal lingular and bibasilar atelectasis and/or pneumonia. Bilateral bronchial wall thickening suspicious for bronchitis. Chronic obstructive pulmonary disease.
[2017-07-24] MEDS ORDERED: ATROPINE SULFATE PFS IVP PRN (20:28)
[2017-07-24] MEDS ORDERED: VISTARIL INJ IM PRN (20:28)
[2017-07-24] MEDS ORDERED: TYLENOL PO PRN (20:28)
[2017-07-24] MEDS ORDERED: NON-FORMULARY MEDICATION (Potassium Chloride [Klor-Con 10] 20 MEQ) PO SCH (21:00)
[2017-07-24] MEDS ORDERED: PROAIR HFA IH PRN (21:30)
[2017-07-24] MEDS ORDERED: LANOXIN ONE (21:44)
[2017-07-24] MEDS ORDERED: ULTRAM PO PRN (21:48)
[2017-07-24] MEDS: LIPITOR PO SCH (21:57)
[2017-07-24] MEDS: NEURONTIN PO SCH (21:57)
[2017-07-24] MEDS: BETAPACE PO SCH (21:58)
[2017-07-24] MEDS: NORCO 10-325 PO PRN (21:58)
[2017-07-24] MEDS ORDERED: LANOXIN IVP ONE (22:00)
[2017-07-24] MEDS: DUONEB NEB SCH (22:50)
[2017-07-24 23:30] VITALS: BMI 22.7
[2017-07-25] MEDS: DUONEB NEB SCH ×4 (05:10→22:53)
[2017-07-25] MEDS ORDERED: SOLU-MEDROL 125 MG IVP ONE (06:00)
[2017-07-25] MEDS ORDERED: PROTONIX PO SCH (07:30)
[2017-07-25] MEDS ORDERED: ASPIRIN EC PO SCH (08:00)
[2017-07-25] MEDS: HYDROCHLOROTHIAZIDE PO SCH (08:21)
[2017-07-25] MEDS: K-DUR PO SCH ×2 (08:21→17:42)
[2017-07-25] MEDS: ASPIRIN CHEWABLE PO SCH (08:22)
[2017-07-25] MEDS: BETAPACE PO SCH ×2 (08:22→20:18)
[2017-07-25] MEDS: NEURONTIN PO SCH ×3 (08:22→20:17)
[2017-07-25] MEDS: CALCIUM 500 + VIT D 200 MG TABLET PO SCH (08:22)
[2017-07-25] MEDS: TENORMIN PO SCH (08:22)
[2017-07-25] MEDS: TRIGLIDE PO SCH (08:22)
[2017-07-25] MEDS: LOVENOX SUBCUT SCH ×2 (08:23→20:17)
[2017-07-25] MEDS: SPIRIVA IH SCH (08:26)
[2017-07-25] MEDS: VILANTEROL IH SCH (08:41)
[2017-07-25] MEDS: FLUTICASONE IH SCH (08:41)
[2017-07-25] MEDS ORDERED: CHLORTHALIDONE PO SCH (09:00)
[2017-07-25] MEDS ORDERED: NON-FORMULARY MEDICATION (Esomeprazole Magnesium [Nexium] 40 MG) PO SCH (09:00)
[2017-07-25] MEDS ORDERED: ATENOLOL PO SCH (09:00)
[2017-07-25] MEDS ORDERED: NON-FORMULARY MEDICATION (Atorvastatin Calcium [Atorvastatin Calcium] 40 MG) PO SCH (09:00)
[2017-07-25] MEDS ORDERED: [UNRECOGNIZED DRUG - OTHER] PO SCH (09:00)
[2017-07-25] MEDS ORDERED: FENOFIBRATE NANOCRYSTALLIZED 145 MG PO SCH (09:00)
[2017-07-25] MEDS ORDERED: TORADOL IVP PRN (13:49)
[2017-07-25] MEDS ORDERED: SOLU-MEDROL 125 MG ONE ×2 (17:36→17:42)
[2017-07-25] MEDS: SOLU-MEDROL 125 MG IVP SCH ×2 (17:42→22:04)
[2017-07-25] MEDS: CARAFATE PO SCH ×2 (17:42→20:16)
[2017-07-25] MEDS: LIPITOR PO SCH (20:18)
[2017-07-26] MEDS: NORCO 10-325 PO PRN (02:06)
[2017-07-26] MEDS: DUONEB NEB SCH ×4 (04:48→22:53)
[2017-07-26] MEDS: CARAFATE PO SCH ×4 (06:03→20:48)
[2017-07-26] MEDS ORDERED: NON-FORMULARY MEDICATION (Esomeprazole Magnesium [Nexium] 40 MG) PO SCH (06:30)
[2017-07-26] MEDS: CALCIUM 500 + VIT D 200 MG TABLET PO SCH (09:09)
[2017-07-26] MEDS: VILANTEROL IH SCH (09:09)
[2017-07-26] MEDS: ASPIRIN CHEWABLE PO SCH (09:09)
[2017-07-26] MEDS: FLUTICASONE IH SCH (09:09)
[2017-07-26] MEDS: K-DUR PO SCH ×2 (09:09→16:55)
[2017-07-26] MEDS: NEURONTIN PO SCH ×3 (09:09→20:51)
[2017-07-26] MEDS: TRIGLIDE PO SCH (09:10)
[2017-07-26] MEDS: HYDROCHLOROTHIAZIDE PO SCH (09:10)
[2017-07-26] MEDS: LOVENOX SUBCUT SCH ×2 (09:10→20:49)
[2017-07-26] MEDS: SPIRIVA IH SCH (09:10)
[2017-07-26] MEDS: TENORMIN PO SCH (09:10)
[2017-07-26] MEDS: BETAPACE PO SCH ×2 (09:10→20:50)
[2017-07-26] MEDS: NICODERM 21 MG TD SCH (09:11)
[2017-07-26] MEDS: SOLU-MEDROL 125 MG IVP SCH ×2 (09:11→21:56)
[2017-07-26] MEDS: LIPITOR PO SCH (20:50)
[2017-07-27] MEDS: DUONEB NEB SCH ×2 (05:15→11:07)
[2017-07-27] MEDS: CARAFATE PO SCH ×2 (05:53→11:33)
[2017-07-27] MEDS ORDERED: NON-FORMULARY MEDICATION (Esomeprazole Magnesium [Nexium] 40 MG) PO SCH (06:30)
[2017-07-27] MEDS: FLUTICASONE IH SCH (09:50)
[2017-07-27] MEDS: VILANTEROL IH SCH (09:50)
[2017-07-27] MEDS: K-DUR PO SCH (09:51)
[2017-07-27] MEDS: NEURONTIN PO SCH (09:51)
[2017-07-27] MEDS: CALCIUM 500 + VIT D 200 MG TABLET PO SCH (09:51)
[2017-07-27] MEDS: ASPIRIN CHEWABLE PO SCH (09:52)
[2017-07-27] MEDS: HYDROCHLOROTHIAZIDE PO SCH (09:52)
[2017-07-27] MEDS: BETAPACE PO SCH (09:52)
[2017-07-27] MEDS: TENORMIN PO SCH (09:52)
[2017-07-27] MEDS: LOVENOX SUBCUT SCH (09:53)
[2017-07-27] MEDS: TRIGLIDE PO SCH (09:53)
[2017-07-27] MEDS: SOLU-MEDROL 125 MG IVP SCH (09:57)
[2017-07-27] MEDS: NICODERM 21 MG TD SCH (09:58)
[2017-07-27] MEDS: SPIRIVA IH SCH (10:02)
--- NOTE | 2017-07-27 11:41 | PCM.PROG ---
Attending Provider: ATTENDING PROVIDER: Dr. JESSY JULIO This patient is seen with Priscila Gottlieb, Nurse Practitioner. DATE OF SERVICE: 07/27/17 SUBJECTIVE: This 72 year old WHITE/ M was hospitalized 07/24/17. The patient is lying in bed, alert. Shortness of breath is better. The patient is in sinus rhythm. REVIEW OF SYSTEMS: CONSTITUTIONAL: No night sweats. No fatigue, malaise, lethargy. No fever or chills. HEENT: Eyes: No visual changes. No eye pain. No eye discharge. ENT: No runny nose. No epistaxis. No sinus pain. No odynophagia. No congestion. RESPIRATORY: Positive for cough and congestion. Improved shortness of breath. No hemoptysis. CARDIOVASCULAR: No angina symptoms. No CHF symptoms. No atypical chest pain for CAD. No palpitations. No orthopnea.. GASTROINTESTINAL: No abdominal pain. No nausea or vomiting. No diarrhea or constipation. No hematemesis. No hematochezia. GENITOURINARY: No urgency. No frequency. No dysuria. No hematuria. No obstructive symptoms. No discharge. No pain. No significant abnormal bleeding. MUSCULOSKELETAL: Chronic back pain. NEUROLOGICAL: Awake, alert, oriented to time, place and person. No headache. No neck pain. No syncope. No seizures. No dizziness. PSYCHIATRIC: Not anxious. No depression. No suicidal thoughts. No homicidal thoughts. SKIN: No rash. No lesions. No wounds. ENDOCRINE: No unexplained weight loss. No weight gain. HEMATOLOGIC/LYMPHATIC: No anemia. No purpura. No petechiae. No prolonged or excessive bleeding. No palpable lymph nodes. PHYSICAL EXAMINATION: GENERAL: The patient is awake, alert and oriented, sitting in bed in no distress. VITAL SIGNS: Temperature 97.9 F, Pulse 68, Respiratory Rate 20, BP 131/71, Pulse Ox 97% HEENT: Head normocephalic, atraumatic. Eyes: Extraocular muscles are intact. Pupils are equal, round and reactive to light and accommodation. Ears: No lesions. Nose appeared normal. Throat: No exudate or erythema. NECK: Supple. No JVD, no carotid bruit. No lymphadenopathy or thyromegaly. LUNGS: Diminished breath sounds bilaterally. Clear to auscultation. Percussion note normal. Chest symmetrical. HEART: S1, S2, no S3. No murmurs. No cyanosis or clubbing. No ascites. Pulses: Dorsalis pedis and posterior tibial pulses +1 to +2 both sides. ABDOMEN: Soft. Non-tender. Bowel sounds active. No CVA tenderness. No mass felt. EXTREMITIES: No edema. Full range of motion of all extremities, equal. NEUROLOGIC: No focal deficit. Cranial nerves II through XII are grossly intact. No headache, no double vision or headache. SKIN: Not dry. Intact. Turgor-normal. LYMPHATIC: No palpable lymph nodes/no lymphedema. MUSCULOSKELETAL: Normal joints with no swelling. Muscle tone is normal. LAB REVIEW: 07/27/17 05:58 07/27/17 05:58 07/27/17 05:58: Sodium 135 L, Potassium 3.5, Chloride 100, Carbon Dioxide 29, Anion Gap 9.5, BUN 16, Creatinine 0.69, Estimated GFR (MDRD) 113.00, BUN/ Creatinine Ratio 23.18, Glucose 112, Calcium 8.0 L, Total Bilirubin 0.53, AST 11 L, ALT 9 L, Alkaline Phosphatase 51 L, Total Protein 5.4 L, Albumin 2.9 L, Globulin 2.5, Albumin/Globulin Ratio 1.16 07/27/17 05:58: WBC 8.87, RBC 4.48 L, Hgb 13.4 L, Hct 39.3 L, MCV 87.7, MCH 29.9 , MCHC 34.1, RDW Coeff of Lyn 13.2, Plt Count 178, Immature Gran % (Auto) 0.7, Neut % (Auto) 81.3, Lymph % (Auto) 10.7, [place] % (Auto) 7.3, Eos % (Auto) 0.0, Baso % (Auto) 0.0, Immature Gran # (Auto) 0.1, Neut # 7.2 H, Lymph # 1.0, [place] # 0.7, Eos # 0.0, Baso # 0.0 ASSESSMENT: 1. New onset atrial fibrillation 2. Severe COPD 3. History of chronic compression fractures spine 4. Smoker PLAN: 1. Advised to quit smoking 2. Echocardiogram if not done recently 3. The patient is noncompliant Plan and coordination of the patient's care discussed in the presence of [employer] Head and nurse. EDUCATION CARRIED OUT ABOUT: The patient was advised to quit smoking. Counseling for smoking cessation done. CONDITION: Stable SCRIBED BY: MODESTO SCHROEDER [employer] scribed while in presence of service performed by Dr. Julio/Priscila Gottlieb APRN on 07/27/17 ([id number])
[2017-07-27 14:55] VITALS: BP 121/63; TEMP 97.5
--- NOTE | 2017-07-28 08:39 | CM.DICTOOL ---
ADMISSION: 07/24/17 19:22 DISCHARGE: July 27, 2017 DATE OF SERVICE: 07/27/17 FINAL DIAGNOSIS Atrial fibrillation, new onset Severe COPD [place] CAD with stent application GERD Smoker Neuropathy Osteoarthritis History of Compression Fracture Spine LAST VITALS Temp Pulse Resp BP Pulse Ox 97.0 F L 73 18 136/71 97 07/27/17 14:00 07/27/17 14:00 07/27/17 14:00 07/27/17 14:00 07/27/17 14:00 ACTIVE HOME MEDICATIONS Acetaminophen/Hydrocodone Bitart ([place] 10-325) 1 tab PO Q6HR PRN PRN Reason: Analgesia Last Admin: 07/26/17 02:06 Dose: 1 tab Albuterol Sulfate (Proair Hfa) 2 puff IH Q4H PRN PRN Reason: soa Aspirin (Aspirin Chewable) 81 mg PO DAILYWM [facility] Last Admin: 07/27/17 09:52 Dose: 81 mg Atorvastatin Calcium (Lipitor) 40 mg PO BEDTIME [facility] Last Admin: 07/26/17 20:50 Dose: 40 mg Calcium/Vitamin D (Calcium 500 + Vit D 200 Mg Tablet) 1 each PO DAILY [facility] Last Admin: 07/27/17 09:51 Dose: 1 each Fenofibrate (Triglide) 145 mg PO DAILY [facility] Last Admin: 07/27/17 09:53 Dose: 160 mg Gabapentin (Neurontin) 600 mg PO TID [facility] Last Admin: 07/27/17 09:51 Dose: 600 mg Nitroglycerin (Nitrostat) 0.4 mg SL Q5MIN X 3 DOSES PRN PRN Reason: CHEST PAIN Non-Formulary Medication (Fluticasone/Vilanterol [Breo Ellipta 100-25 Mcg Inh]) 1 each IH DAILY [facility] Last Admin: 07/27/17 09:50 Dose: 1 each Non-Formulary Medication (Esomeprazole Magnesium [Nexium]) 40 mg PO QDAC [facility] Last Admin: 07/27/17 05:53 Dose: 40 mg Potassium Chloride (K-Dur) 20 meq PO BIDWM [facility] Last Admin: 07/27/17 09:51 Dose: 20 meq Sotalol HCl (Betapace) 80 mg PO BID [facility] Last Admin: 07/27/17 09:52 Dose: 80 mg Sucralfate (Carafate) 1 gm PO ACHS [facility] Last Admin: 07/27/17 11:33 Dose: 1 gm Tiotropium [place] (Spiriva) 1 cap IH DAILY [facility] Last Admin: 07/27/17 10:02 Dose: 1 cap Tramadol HCl (Ultram) 50 mg PO Q6H PRN PRN Reason: Mild Pain Last Admin: 07/25/17 01:38 Dose: 50 mg Cyclobenzaprine HCL 10 mg PO TID Last Admin: ALLERGIES No Known Allergies Allergy (Verified 07/24/17 17:20) NEW PRESCRIPTIONS: ELIQUIS 5 MG BID CARDIZEM 60 MG BID SMOKING: Advised to stop smoking DISEASE SPECIFIC EDUCATION: Atrial Fibrillation Prescriptions COPD Pulmonary Rehab LAB REVIEW: 07/27/17 05:58 07/27/17 05:58 07/27/17 05:58: Sodium 135 L, Potassium 3.5, Chloride 100, Carbon Dioxide 29, Anion Gap 9.5, BUN 16, Creatinine 0.69, Estimated GFR (MDRD) 113.00, BUN/ Creatinine Ratio 23.18, Glucose 112, Calcium 8.0 L, Total Bilirubin 0.53, AST 11 L, ALT 9 L, Alkaline Phosphatase 51 L, Total Protein 5.4 L, Albumin 2.9 L, Globulin 2.5, Albumin/Globulin Ratio 1.16 07/27/17 05:58: WBC 8.87, RBC 4.48 L, Hgb 13.4 L, Hct 39.3 L, MCV 87.7, MCH 29.9 , MCHC 34.1, RDW Coeff of Lyn 13.2, Plt Count 178, Immature Gran % (Auto) 0.7, Neut % (Auto) 81.3, Lymph % (Auto) 10.7, [place] % (Auto) 7.3, Eos % (Auto) 0.0, Baso % (Auto) 0.0, Immature Gran # (Auto) 0.1, Neut # 7.2 H, Lymph # 1.0, [place] # 0.7, Eos # 0.0, Baso # 0.0 PLAN: Discharge home Diet: Heart Healthy Activity: Gradually resume as tolerated An appointment is scheduled with Dr. Mcelroy on July 31, 2017 at 10 am. Continue medications as listed on nursing discharge information sheet, including Betapace 80 mg BID STOP ATENOLOL/CHLORTHALIDONE The patient is referred and is agreeable to Pulmonary Rehab. He will be called with an appointment later this week for start date. Mr. Jacobs is alert and oriented x 3. He is independent with ADL's. He is ambulatory without use of an assistive device in the room. No respiratory distress is noted. Oxygen saturation on room air is 97-98%. He denies chest pain or tightness. Meal intakes are good at 100%. Skin is intact and free of decubitus ulcers, rashes or irritation. Mao Mcelroy MD Priscila Gottlieb APRN
--- NOTE | 2017-07-28 13:07 | ECHO2D ---
Date of Exam: 07/27/17 Ordering Physician: JESSY JULIO Room #: [id number] Reason for Echo: ATRIAL FIBRILLATION M-Mode Normal Adult Results LV Dimensions Normal Adult Results AoV Opening excursions >1.6 1.4 LVEDD-base- 3.5-5.8 5.4 Ao root dimensions 2.0-3.7 3.2 LVESD-base- 3.1-4.6 L. Atrium dimensions 1.9-3.8 4.3 Post. Wall thickness 0.8-1.1 1.4 IV septum (thickness) 0.7-1.2 1.4 Post. Wall excursion 0.72-1.3 NORMAL Septal motion NORMAL Systolic motion R. Ventricular cavity 1.5-2.0 NORMAL LVEF 60% 53% Paradoxical septal wall motion NORMAL 2-D : ENLARGED LEFT ATRIAL CAVITY--NORMAL LEFT VENTRICULAR CONTRACTILITY--NO EFFUSION, NO THROMBUS, CALCIFIC AORTIC VALVES M-MODE: MV: NORMAL AV: CALCIFIC AORTIC VALVE TV: NORMAL PV: NORMAL CHAMBER SIZE: ENLARGED LEFT ATRIAL CAVITY WALL MOTION: NORMAL PERICARDIUM: NORMAL INTERPRETATION: 1. LEFT VENTRICULAR HYPERTROPHY WITH ENLARGED LEFT ATRIAL CAVITY 2. NORMAL LEFT VENTRICULAR CONTRACTILITY 3. MILD CALCIFIC AORTIC STENOSIS--VALVE AREA >1.8 CM2 MTDD
--- NOTE | 2017-07-28 14:52 | PN ---
DATE OF SERVICE: 07/24/17 SUBJECTIVE: This patient was hospitalized with shortness of breath and patient had atrial fibrillation with rate of 130/min. The patient has history of smoking with severe chronic lung disease with kyphosis, scoliosis. The patient's condition has been deteriorating lately with of his son, which was nearly 6 months ago. The patient has been in the hospital emergency room several times and also in the office several times and overall he feels fatigue and tired. PHYSICAL EXAMINATION: GENERAL: The patient is oriented to time, place and person. HEENT: Head normocephalic, atraumatic. Eyes: Extraocular muscles are intact. Pupils are equal, round and reactive to light and accommodation. Ears: No lesions. Nose appeared normal. Throat: No exudate or erythema. NECK: Supple. No JVD, no carotid bruit. No lymphadenopathy or thyromegaly. LUNGS: Decreased breath sounds but clear to auscultation. Percussion note normal. Chest symmetrical. HEART: S1, S2, no S3. No murmurs. No cyanosis or clubbing. No ascites. Pulses: Dorsalis pedis and posterior tibial pulses +1 to +2 both sides. ABDOMEN: Soft. Nontender. Bowel sounds active. Kyphosis present. No CVA tenderness. No mass felt. EXTREMITIES: No edema. Full range of motion of all extremities, equal. NEUROLOGIC: No focal deficit. Cranial nerves II through XII are grossly intact. No headache, no double vision or headache. SKIN: Not dry. Intact. Turgor - normal. LYMPHATIC: No palpable lymph nodes/no lymphedema. MUSCULOSKELETAL: Normal joints with no swelling. Muscle tone is normal. ASSESSMENT: 1. Atrial fib with rapid ventriculr response 2. Shortness of breath, combination of atrial fib and severe chronic lung disease. 3. Chronic bronchitis 4. History of coronary artery disease PLAN: 1. Slow ventricular response. 2. Will give Betapace and also give IV Lanoxin at least 2 doses two hours apart 3. IV Solu-Medrol 4. Continue other medications 5. Add Lovenox 40 mg twice a day, total of 80 mg 6. Initial cardiac markers negative. Will do another set of cardiac markers at 6 o'clock, 7 o'clock in the morning. TIME SPENT: More than 30 minutes. Plan and coordination of the patient's care discussed in the presence of nurse. MARINO
--- NOTE | 2017-07-29 07:06 | PN ---
DATE OF SERVICE: 07/25/17 SUBJECTIVE: This is a 72-year-old white male hospitalized with atrial fibrillation. The patient's condition has improved. He is in atrial fib with rate of 80/min. The patient is on Atenolol and Betapace. His respiratory status seems to be better. He is less short of breath. The patient is not in distress at all. The is present in the room. REVIEW OF SYSTEMS: CONSTITUTIONAL: No night sweats. No fatigue, malaise, lethargy. No fever or chills. HEENT: Eyes: No visual changes. No eye pain. No eye discharge. ENT: No runny nose. No epistaxis. No sinus pain. No sore throat. No odynophagia. No congestion. RESPIRATORY: No cough, no congestion. No hemoptysis. No shortness of breath. CARDIOVASCULAR: No angina symptoms. No CHF symptoms. No atypical chest pain for CAD. No palpitations. No orthopnea. GASTROINTESTINAL: No abdominal pain. No nausea or vomiting. No diarrhea or constipation. No hematemesis. No hematochezia. GENITOURINARY: No urgency. No frequency. No dysuria. No hematuria. No obstructive symptoms. No discharge. No pain. No significant abnormal bleeding. MUSCULOSKELETAL: No musculoskeletal pain; no joint swelling. NEUROLOGICAL: No headache. No neck pain. No syncope. No seizures. No dizziness. PSYCHIATRIC: Not anxious. No depression. No suicidal thoughts. No homicidal thoughts. SKIN: No rash. No lesions. No wounds. ENDOCRINE: No unexplained weight loss. No weight gain. HEMATOLOGIC/LYMPHATIC: No anemia. No purpura. No petechiae. No prolonged or excessive bleeding. No palpable lymph nodes. PHYSICAL EXAMINATION: VITAL SIGNS: Temperature 97.4, pulse 74, respiratory rate 16, BP 130/75, pulse ox 99% on room air. HEENT: Head normocephalic, atraumatic. Eyes: Extraocular muscles are intact. Pupils are equal, round and reactive to light and accommodation. Ears: No lesions. Nose appeared normal. Throat: No exudate or erythema. NECK: Supple. No JVD, no carotid bruit. No lymphadenopathy or thyromegaly. LUNGS: Decreased breath sounds. Clear to auscultation. Percussion note normal. Chest symmetrical. HEART: S1, S2, no S3. No murmurs. No cyanosis or clubbing. No ascites. Pulses: Dorsalis pedis and posterior tibial pulses +1 to +2 both sides. ABDOMEN: Soft. Nontender. Bowel sounds active. No CVA tenderness. No mass felt. EXTREMITIES: No pedal edema. Full range of motion of all extremities, equal. NEUROLOGIC: No focal deficit. Cranial nerves II through XII are grossly intact. No headache, no double vision or headache. SKIN: Warm, dry and intact. Turgor - normal. LYMPHATIC: No palpable lymph nodes/no lymphedema. MUSCULOSKELETAL: Normal joints with no swelling. Muscle tone is normal. ASSESSMENT: 1. ATRIAL FIBRILLATION WITH NORMAL VENTRICULAR RESPONSE. THE PATIENT HAD SOME CHEST DISCOMFORT BUT CARDIAC MARKERS AND EKG ARE NEGATIVE. 2. THE PATIENT HAS CHRONIC LUNG DISEASE. PLAN: THE PATIENT IS ON LOVENOX AND WILL BE FURTHER EVALUATED WITH ECHO AND WILL SEE WHAT ELSE COULD BE DONE. LIKELY PATIENT MAY END UP ON BYRON BLOOD THINNERS. EDUCATION: Atrial fibrillation and complications discussed. The patient has CHADS2 VASC score approximately 3. CONDITION: Stable now. TIME SPENT: More than 30 minutes. Plan and coordination of the patient's care discussed in the presence of nurse. MARINO
--- NOTE | 2017-07-29 08:54 | HP ---
DATE OF SERVICE: 07/24/17 REASON FOR HOSPITALIZATION: Shortness of breath, atrial fibrillation with rapid ventricular response, chest discomfort. HISTORY OF PRESENT ILLNESS: 72-year-old white male who has been going through a lot of stress with the of his son recently has been to a couple emergency rooms in the [place] area and also this emergency room at [facility] two to three times. He has been seen in my office two to three times with complaints of feeling short of breath, not having any energy or fatigue. This time the patient has atrial fibrillation with rapid ventricular responsive. The patient has continued to smoke heavy. The patient has severe chronic lung disease with osteoporosis with kyphosis. He also has a number of other medical problems like hypertension, dyslipidemia, coronary artery disease, atrial arrhythmias, neuropathy, severe DJD spine, kyphosis, scoliosis. PAST MEDICAL HISTORY: Hypertension Dyslipidemia Coronary artery disease Neuropathy Severe DJD COPD Atrial arrhythmias Kyphosis Scoliosis Nicotine use PAST SURGICAL HISTORY: Volvulus - part of intestines removed REVIEW OF SYSTEMS: CONSTITUTIONAL: No night sweats. No fatigue, malaise, lethargy. No fever or chills. HEENT: Eyes: No visual changes. No eye pain. No eye discharge. ENT: No runny nose. No epistaxis. No sinus pain. No sore throat. No odynophagia. No ear pain. No congestion. RESPIRATORY: No cough, no congestion. No hemoptysis. No shortness of breath. CARDIOVASCULAR: No angina symptoms. No CHF symptoms. No atypical chest pain for CAD. No palpitations. No orthopnea. GASTROINTESTINAL: No abdominal pain. No nausea or vomiting. No diarrhea or constipation. No hematemesis. No hematochezia. GENITOURINARY: No urgency. No frequency. No dysuria. No hematuria. No obstructive symptoms. No discharge. No pain. No significant abnormal bleeding. MUSCULOSKELETAL: No musculoskeletal pain. No joint swelling. No arthritis. NEUROLOGICAL: No headache. No neck pain. No syncope. No seizures. No dizziness. PSYCHIATRIC: Not anxious. No depression. No suicidal thoughts. No homicidal thoughts. SKIN: No rash. No lesions. No wounds. ENDOCRINE: No unexplained weight loss. No weight gain. HEMATOLOGIC/LYMPHATIC: No anemia. No purpura. No petechiae. No prolonged or excessive bleeding. No palpable lymph nodes. PERSONAL/FAMILY/SOCIAL HISTORY: The patient is , lives with . He does all activity of daily living. No alcohol abuse. Smokes more than one pack a day for a number of years. MEDICATIONS: Tenoretic 1/2 tablet p.o. daily Atorvastatin 40 mg p.o. daily Nexium 40 mg p.o. q.a.m. Nitroglycerin p.r.n. sublingual for chest pain Sotalol 80 mg twice a day Albuterol-ProAir two puffs four times a day Aspirin one a day Fenofibrate 145 mg p.o. daily Spiriva one puff p.o. daily Tramadol 50 mg q.6hr Ciprofloxacin 500 mg q.12hr Breo one puff daily Neurontin 600 mg t.i.d. [place] 10/325 mg q.6 Sotalol 120 mg p.o. b.i.d. a.c. ALLERGIES: NKDA PHYSICAL EXAMINATION: GENERAL: The patient is oriented to time, place and person. VITAL SIGNS: Temperature 98, 120 irregular, respiratory rate 15, BP 170/70, pulse ox 90%. HEENT: Face is symmetrical. Head normocephalic, atraumatic. Eyes: Extraocular muscles are intact. Pupils are equal, round and reactive to light and accommodation. Ears: No lesions. Nose appeared normal. Throat: No exudate or erythema. NECK: Supple. No JVD, no carotid bruit. No lymphadenopathy or thyromegaly. LUNGS: Decreased breath sounds with mild wheeze. Percussion note normal. Chest has kyphosis. HEART: S1, S2, irregularly irregular rate, 130/min. No S3. No murmur. No cyanosis or clubbing. No ascites. Pulses: Dorsalis pedis and posterior tibial pulses +1 bilaterally. ABDOMEN: Soft. Nontender. Bowel sounds active. No CVA tenderness. No mass felt. EXTREMITIES: Trace edema. Full range of motion of all extremities, equal. NEUROLOGIC: No focal deficit. Cranial nerves II through XII are grossly intact. No headache, no double vision or headache. SKIN: Dry. Mucous membrane normal. LYMPHATIC: No palpable lymph nodes/no lymphedema. MUSCULOSKELETAL: Normal joints with no swelling. Muscle tone is normal. ASSESSMENT: 1. ATRIAL FIBRILLATION WITH RAPID VENTRICULAR RATE 2. CHEST DISCOMFORT LIKELY FROM ATRIAL FIB 3. CORONARY ARTERY DISEASE 4. SEVERE CHRONIC LUNG DISEASE WITH BRONCHITIS 5. 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 HYPERTENSION 7. DYSLIPIDEMIA 8. NEUROPATHY PLAN: 1. Give IV Lanoxin 0.25 now 2. Cardizem drip 5 mg at rate of 5 mg/hr 3. Continue Betapace 80 mg daily 4. IV Solu-Medrol 150 mg q.8hr 5. Telemetry 6. Cardiac markers to be done tomorrow 7. Nebs treatment 8. Pulmonary rehab advised 9. The patient will be on Lovenox 10. CHADS2 VASC score is more than 3 11. Atrial fibrillation complications discussed 12. Counseling for smoking done 13. Osteoporosis discussed with smoking CONDITION: Stable TIME SPENT: More than 70 minutes. MTDD
--- NOTE | 2017-07-29 10:49 | PN ---
DATE OF SERVICE: 07/26/17 SUBJECTIVE: 72-year-old white male hospitalized with atrial fibrillation with rapid ventricular response. The patient's condition has improved. Shortness of breath is a lot better. He doesn't have any chest pain. is in the room as usual. REVIEW OF SYSTEMS: CONSTITUTIONAL: No night sweats. No fatigue, malaise, lethargy. No fever or chills. HEENT: Eyes: No visual changes. No eye pain. No eye discharge. ENT: No runny nose. No epistaxis. No sinus pain. No sore throat. No odynophagia. No congestion. RESPIRATORY: No cough, no congestion. No hemoptysis. No shortness of breath. CARDIOVASCULAR: No angina symptoms. No CHF symptoms. No atypical chest pain for CAD. No palpitations. No orthopnea. GASTROINTESTINAL: No abdominal pain. No nausea or vomiting. No diarrhea or constipation. No hematemesis. No hematochezia. GENITOURINARY: No urgency. No frequency. No dysuria. No hematuria. No obstructive symptoms. No discharge. No pain. No significant abnormal bleeding. MUSCULOSKELETAL: No musculoskeletal pain; no joint swelling. NEUROLOGICAL: No headache. No neck pain. No syncope. No seizures. No dizziness. PSYCHIATRIC: Not anxious. No depression. No suicidal thoughts. No homicidal thoughts. SKIN: No rash. No lesions. No wounds. ENDOCRINE: No unexplained weight loss. No weight gain. HEMATOLOGIC/LYMPHATIC: No anemia. No purpura. No petechiae. No prolonged or excessive bleeding. No palpable lymph nodes. PHYSICAL EXAMINATION: VITAL SIGNS: Temperature 97.8, pulse 80, respiratory rate 16, BP 120/66, pulse ox 98%. HEENT: Head normocephalic, atraumatic. Eyes: Extraocular muscles are intact. Pupils are equal, round and reactive to light and accommodation. Ears: No lesions. Nose appeared normal. Throat: No exudate or erythema. NECK: Supple. No JVD, no carotid bruit. No lymphadenopathy or thyromegaly. LUNGS: Decreased breath sounds. Clear to auscultation. Percussion note normal. Chest symmetrical. HEART: S1, S2, no S3. No murmurs. No cyanosis or clubbing. No ascites. Pulses: Dorsalis pedis and posterior tibial pulses +1 to +2 both sides. ABDOMEN: Soft. Nontender. Bowel sounds active. No CVA tenderness. No mass felt. EXTREMITIES: No edema. Full range of motion of all extremities, equal. NEUROLOGIC: No focal deficit. Cranial nerves II through XII are grossly intact. No headache, no double vision or headache. SKIN: Not dry. Intact. Turgor - normal. LYMPHATIC: No palpable lymph nodes/no lymphedema. MUSCULOSKELETAL: Normal joints with no swelling. Muscle tone is normal. LABS: Hemoglobin 15, hematocrit 43, WBC 5,800, normal differential. Creatinine 0.7, BUN 13, potassium 3.5. ASSESSMENT: 1. ATRIAL FIB SEEMS TO BE NORMAL, LEFT VENTRICULAR RESPONSE NOW. 2. SHORTNESS OF BREATH IS A LOT BETTER; AT REST IS NOT SHORT OF BREATH. 3. HYPERTENSION, CONTROLLED. 4. CORONARY ARTERY DISEASE, CONTROLLED. NO EVIDENCE OF ACUTE WI OR ISCHEMIA. PLAN: 1. Counseling for smoking done. 2. Advised to join pulmonary rehab. 3. Medications explained. 4. Atrial fibrillation explained in detail. CONDITION: Stable. TIME SPENT: More than 30 minutes. Plan and coordination of the patient's care discussed in the presence of nurse. MARINO
--- NOTE | 2017-08-07 14:08 | DS ---
DATE OF SERVICE: 07/27/17 FINAL DIAGNOSIS: 1. ATRIAL FIBRILLATION, NEW O[place]ET 2. SEVERE COPD 3. MS 4. CAD WITH STENT APPLICATION 5. GERD 6. SMOKER 7. NEUROPATHY 8. OSTEOARTHRITIS 9. HISTORY OF COMPRESSION FRACTURE SPINE DISCHARGE INSTRUCTIONS: Followup appointment with Dr. Mcelroy on 07/31/17 at 10 a.m. The patient is referred and is agreeable to Pulmonary Rehab. He will be called with an appointment later this week for a start date. MEDICATIONS AT DISCHARGE: [place] 10-325 one tab p.o. q.6h p.r.n. ProAir Hfa two puff IH q.4h p.r.n. Aspirin 81 mg p.o. daily with meal AURY Tenormin 25 mg p.o. daily AURY Lipitor 40 mg p.o. bedtime AURY Calcium 500 + Vitamin D 200 mg one each p.o. daily AURY Triglide 145 mg p.o. daily AURY Neurontin 600 mg p.o. t.i.d. AURY BREO ELLIPTA 100=25 MCG INH AURY Nexium 40 mg p.o.q.d a.c. AURY K-Dur 20 mEq p.o. b.i.d. with meal Betapace 80 mg p.o. b.i.d. AURY Carafate 1 gm p.o. a.c. h.s. AURY Spiriva one cap IH daily AURY Ultram 50 mg p.o. q.6h p.r.n. Cyclobenzaprine HCL 10 mg p.o. t.i.d. STOP ATENOLOL/CHLORTHALIDONE NEW PRESCRIPTIONS: Eliquis 5 mg b.i.d. Cardizem 60 mg b.i.d. DIET INSTRUCTIONS: Heart Healthy ACTIVITY: Gradually resume as tolerated SMOKING: Advised to stop smoking DISEASE SPECIFIC EDUCATION: Atrial fibrillation Prescriptions COPD Pulmonary Rehab HOSPITAL COURSE: 72-year-old white male seen with nurse practitioner. He is discharged today. He is stable, up and about. No chest pain. No shortness of breath, feeling a lot better. PFT still pending. Echo done today showed normal LV contractility with enlarged right ventricular cavity. Left atrial cavity enlarged. The patient was admitted with atrial fibrillation with rapid ventricular response and shortness of breath with bronchitis. He was treated with IV Solu-Cortef. Cardizem was given. Blood pressure was brought under control. The patient has history of atrial fib. He has been on Betapace considering his second or third episode of atrial fibrillation. The patient was explained about atrial fib and its complications. The patient has continued to smoke. His cardiac status is going to worsen. His arrhythmias are based on severe chronic lung disease along with hypertension. He is agreeable to get on Eliquis. The side effects of Eliquis with GI bleed and intracranial bleed discussed. He is advised not to take any nonsteroidal antiinflammatories. The patient was up and about. He was also advised pulmonary rehab. I think he is going to decline. The patient's prognosis is poor unless he changes his lifestyle. The patient's condition overall has changed ever since his son . TIME SPENT: More than 60 minutes. MARINO
--- NOTE | 2017-08-07 14:10 | PN ---
CODING FOR BILLIN07/24/17 LEVEL 5 07/25/17 INTERMEDIATE 07/26/17 INTERMEDIATE 07/27/17 DISCHARGE MTDD
== END 2017-07-27 15:45 | disposition home or self-care (01) | DRG 310 ==
LOC: ED 17:16 → MEDSURG A 19:22
PROVIDERS: ADMIT Internal Medicine; ATTEND Internal Medicine
DX: I48.0 Paroxysmal atrial fibrillation (principal); I48.91 Unspecified atrial fibrillation; R00.2 Palpitations; R00.0 Tachycardia, unspecified; R07.9 Chest pain, unspecified; R06.02 Shortness of breath; I51.7 Cardiomegaly; J44.9 Chronic obstructive pulmonary disease, unspecified; I25.10 Atherosclerotic heart disease of native coronary artery without angina pectoris; I25.2 Old myocardial infarction; K21.9 Gastro-esophageal reflux disease without esophagitis; G62.9 Polyneuropathy, unspecified; M19.90 Unspecified osteoarthritis, unspecified site; M40.209 Unspecified kyphosis, site unspecified; F17.200 Nicotine dependence, unspecified, uncomplicated; Z95.5 Presence of coronary angioplasty implant and graft; Z79.899 Other long term (current) drug therapy; Z63.4 Disappearance and death of family member
CPT/HCPCS: 36415; 80053; 81001; 82550; 82803; 83605; 84145; 84436; 84439; 84443; 84484; 85025; 85379; 93005; 93010; 94640; 96360; 96375; 99284; 99285

== ENCOUNTER 2017-11-18 07:20 | Inpatient (IN) | payer OTHER ==
[2017-11-18] MEDS ORDERED: NITROGLYCERIN 250 ML IV ONE (07:25)
[2017-11-18] MEDS ORDERED: DUONEB NEB STA ×4 (07:28→13:40)
[2017-11-18] MEDS ORDERED: ROCEPHIN 1 GM in SODIUM CHLORIDE 50 ML IV STA (07:41)
[2017-11-18] MEDS ORDERED: SOLU-MEDROL 125 MG IVP STA (07:41)
--- NOTE | 2017-11-18 07:45 | ED.PDOC ---
General ED Provider: Dr. PAULINE FONSECA Chief Complaint: Respiratory Complaint Stated Complaint: shortness of breath Time Seen by Physician: 07:23 ( said became short of breath 2 hrs ago) Mode of Arrival: Ambulance Information Source: Patient, Family, EMT Exam Limitations: No limitations (HAS COPD END STAGE AT O2 AT HOME AT NIGHT NO CHEST PAIN) Primary Care Provider: JESSY JULIO Nursing and Triage Documentation Reviewed and Agree: Yes Reviewed sepsis parameters & appropriate labs ordered?: Yes System Inflammatory Response Syndrome: Resp >20/Minute Sepsis Protocol: For patient's 13 years and over: Temp is 96.8 and below OR 101 and greater Pulse >90 BPM Resp >20/minute Acutely Altered Mental Status Are patient's symptoms suggestive of a new infection, such as: -Pneumonia -Skin, Soft Tissue -Endocarditis -UTI -Bone, Joint Infection -Implantable Device -Acute Abdominal Infection -Wound Infection -Meningitis -Blood Stream Catheter Infection -Unknown System Inflammatory Response Syndrome: Not Applicable Respiratory Complaint Exam - Shortness of Air Complaint/Exam Onset/Duration: 2 HRS AGO STILL SMOKES AVIDLY Symptoms Are: Still present Timing: Constant Initial Severity: Severe Current Severity: Severe Character: Reports: Dyspnea at rest, Dyspnea on exertion, Orthopnea Aggravating: Reports: Recumbent position, Weather Alleviating: Reports: Bronchodilators, Oxygen, Upright position, Spontaneous resolution Associated Signs and Symptoms: Reports: Cough, Wheezing, Diaphoresis. Denies: Chest pain with cough, Chest pain, Fever, Chills, Nasal congestion, Dizziness, Calf pain, Calf swelling, Edema, Rapid breathing, Labored breathing, Decreased intake Related History: Reports: Similar episode (COPD ) History of Healthcare-Acquired Pneumonia: No Pulmonary Embolism Risk Factors: Reports: Bedrest, Smoking Cardiac Risk Factors: Reports: Prior [place], CAD, Smoking, Elevated lipids, Hypertension. Denies: CHF, Family History Pseudomonas Risk Factors: Reports: Chronic Lung Disease Tuberculosis Risk Factors: Reports: Chronic Resp. Faliure Home Oxygen Use: Yes Recent Stress Test: No Recent Echo/LV Function: No Respiratory Distress: None Stridor Present: No Tracheal Deviation: No Subcutaneous Emphysema: No Accessory Muscle Use: Yes Retractions: Nasal Flaring, Diaphragmatic Diminished Breath Sounds: Yes Prolonged Expiratory Phase: Yes Unable to Speak Full Sentences: No Fatigue: Yes Leg Swelling: No Cristiano's Sign Present: No Grunting Respirations: No Kussmaul Respirations: No Differential Diagnoses: CHF, Pulmonary Edema, Chest Wall Pain, Pneumonia, URI Quality Indicators for AMI: EKG in 10min. Quality Indicators for Cardiac Chest Pain: EKG in 10min. Quality Indicator For Non-Traumatic Chest Pain/Syncope: EKG Performed Quality Indicators For Pneumonia/CAP: Blood Cultures-SCU admit, Antibiotics in 6hr-admit, SpO2 assessed, Empiric Antibiotic Rx, Vital signs, Mental status assessed Review of Systems - Review Of Systems Constitutional: Reports: Malaise Eyes: Reports: No symptoms Ears, Nose, Mouth, Throat: Reports: No symptoms Respiratory: Reports: Cough, Short of air, Wheezing Cardiac: Reports: No symptoms GI: Reports: No symptoms : Reports: No symptoms Musculoskeletal: Reports: No symptoms Skin: Reports: No symptoms Neurological: Reports: No symptoms Endocrine: Reports: No symptoms Hematologic/Lymphatic: Reports: No symptoms All Other Systems: Reviewed and Negative Past Medical History - Past Medical History Previously Healthy: Yes Endocrine: Reports: None Cardiovascular: Reports: CAD, [place], CHF Respiratory: Reports: COPD Hematological: Reports: None Gastrointestinal: Reports: None Genitourinary: Reports: None Neuro/Psych: Reports: None Musculoskeletal: Reports: Arthritis (on the neck with pinched nerve ) Cancer: Reports: None Other Pertinent Past Medical History: son recently disappeared ? - Surgical History General Surgical History: Reports: Stent (CARDIAC STENT), Orthopedic (Knee surgery ) - Family History Family History: Reports: Heart - Social History Smoking Status: Current every day smoker, Heavy tobacco smoker Hx Substance Use: No Alcohol Screening: None Physical Exam - Physical Exam Appearance: Ill-appearing Ill-appearing: Mild Pain Distress: Mild Eyes: ABHINAV, EOMI, Conjunctiva clear ENT: Ears normal, Nose normal, Oropharynx normal Respiratory: Airway patent (BS VERY DIMINISHED ALL LUNG ), Breath sounds diminished, Wheezes Cardiovascular: RRR, Pulses normal, No rub, No murmur GI/: Soft, Nontender, No masses, Bowel sounds normal, No Organomegaly Musculoskeletal: Normal strength, ROM intact, No edema, No calf tenderness Skin: Warm, Dry, Normal color Neurological: Sensation intact, Motor intact, Reflexes intact, Cranial nerves intact, Alert, Oriented Psychiatric: Affect appropriate, Mood appropriate Interpretation - Radiology Interpretation Radiology Interpretation By: ED Physician Radiology Results: Negative Exam Interpreted: CXR Physician Notification - Case Discussed Physician Notified: pmd Admit To: Inpatient Critical Care Note - Critical Care Note Total Time (mins): 60 Course - Course Hematology/Chemistry: 11/18/17 07:38 11/18/17 07:38 Orders, Labs, Meds: Lab Review 11/18/17 11/18/17 11/18/17 07:29 07:38 07:38 WBC 10.83 H RBC 4.71 Hgb 14.1 Hct 41.1 L MCV 87.3 MCH 29.9 MCHC 34.3 RDW Coeff of Lyn 14.1 Plt Count 238 Immature Gran % (Auto) 0.8 Neut % (Auto) 73.6 Lymph % (Auto) 14.9 [place] % (Auto) 9.7 Eos % (Auto) 0.5 Baso % (Auto) 0.5 Immature Gran # (Auto) 0.1 Neut # (Auto) 8.0 H Lymph # (Auto) 1.6 [place] # (Auto) 1.1 Eos # (Auto) 0.1 Baso # (Auto) 0.1 PT INR APTT Puncture Site R brach O2 Saturation 93.0 L ABG pH 7.30 L ABG pCO2 52.0 H ABG pO2 76.0 L ABG HCO3 26 ABG Total CO2 28 ABG Base Excess 0 Michel Test + O2 Delivery Device Nc Oxygen Liter Flow 2.00 FiO2 % 28.0 Sodium 132 L Potassium 4.2 Chloride 98 Carbon Dioxide 23 Anion Gap 15.2 BUN 12 Creatinine 0.66 Estimated GFR (MDRD) 119.00 BUN/Creatinine Ratio 18.18 Glucose 126 H Calcium 9.0 Total Bilirubin 0.4 AST 22 ALT 20 Alkaline Phosphatase 68 Total Creatine Kinase 28 Troponin I 0.0420 Total Protein 6.9 Albumin 3.3 L Globulin 3.6 Albumin/Globulin Ratio 0.92 Procalcitonin 11/18/17 11/18/17 07:38 07:38 WBC RBC Hgb Hct MCV MCH MCHC RDW Coeff of Lyn Plt Count Immature Gran % (Auto) Neut % (Auto) Lymph % (Auto) [place] % (Auto) Eos % (Auto) Baso % (Auto) Immature Gran # (Auto) Neut # (Auto) Lymph # (Auto) [place] # (Auto) Eos # (Auto) Baso # (Auto) PT 9.8 INR 0.98 APTT 34.6 Puncture Site O2 Saturation ABG pH ABG pCO2 ABG pO2 ABG HCO3 ABG Total CO2 ABG Base Excess Michel Test O2 Delivery Device Oxygen Liter Flow FiO2 % Sodium Potassium Chloride Carbon Dioxide Anion Gap BUN Creatinine Estimated GFR (MDRD) BUN/Creatinine Ratio Glucose Calcium Total Bilirubin AST ALT Alkaline Phosphatase Total Creatine Kinase Troponin I Total Protein Albumin Globulin Albumin/Globulin Ratio Procalcitonin < 0.05 Orders Category Date Time Status ABG DRAW REQUEST Stat CARDIO 11/18/17 07:29 Ordered EKG-(ED ONLY) Stat CARDIO 11/18/17 07:28 Ordered EKG-(IP & OP ONLY) DAILY CARDIO 11/19/17 06:00 Ordered EKG-(IP & OP ONLY) DAILY CARDIO 11/20/17 06:00 Ordered EKG-(IP & OP ONLY) DAILY CARDIO 11/21/17 06:00 Ordered NEBULIZER TREATMENT Stat CARDIO 11/18/17 07:28 Ordered NEBULIZER TREATMENT Stat CARDIO 11/18/17 07:31 Ordered NEBULIZER TREATMENT Stat CARDIO 11/18/17 08:56 Ordered OXYGEN Routine CARDIO 11/18/17 08:55 Ordered INTAKE & OUTPUT Q8HR CARE 11/18/17 08:54 Ordered VITAL SIGNS Q8HR CARE 11/18/17 08:54 Ordered ED IV/MEDIPORT/POWERPORT .ONCE EMERGENCY 11/18/17 07:28 Ordered ABG Stat LAB 11/18/17 07:29 Ordered BLOOD CULTURE Stat LAB 11/18/17 07:30 Ordered CBC W/ AUTO DIFF Stat LAB 11/18/17 07:27 Ordered COMPREHENSIVE METABOLIC PANEL Stat LAB 11/18/17 07:27 Ordered CREATINE KINASE Q8H LAB 11/18/17 15:00 Ordered CREATINE KINASE Q8H LAB 11/18/17 23:00 Ordered CREATINE KINASE Stat LAB 11/18/17 07:27 Ordered PARTIAL THROMBOPLASTIN TIME Stat LAB 11/18/17 07:30 Ordered PROCALCITONIN Stat LAB 11/18/17 Ordered PT WITH INR Stat LAB 11/18/17 07:30 Ordered TROPONIN I Q8H LAB 11/18/17 15:00 Ordered TROPONIN I Q8H LAB 11/18/17 23:00 Ordered TROPONIN I Stat LAB 11/18/17 07:27 Ordered 0.9 % Sodium Chloride [Saline Flush] MEDS 11/18/17 07:27 Ordered 1 syr IVF PRN PRN Apixaban [Eliquis] MEDS 11/18/17 09:00 Ordered 5 mg PO BID Aspirin [Aspirin Chewable] MEDS 11/19/17 08:00 Ordered 81 mg PO DAILYWM Atorvastatin Calcium [Atorvastatin Calcium] MEDS 11/18/17 09:00 Ordered 40 mg PO DAILY Ceftriaxone Sodium [Rocephin] MEDS 11/18/17 07:49 Discontinued 1 gm .ROUTE .STK-MED ONE Ceftriaxone Sodium [Rocephin] 1 gm MEDS 11/18/17 09:00 Ordered 0.9 % Sodium Chloride [Sodium Chloride] 50 ml IV DAILY Ceftriaxone Sodium [Rocephin] 1 gm MEDS 11/18/17 07:41 Ordered 0.9 % Sodium Chloride [Sodium Chloride] 50 ml IV ONCE Dextrose 5 % in Water [Premix D5w 250 ml Vial] 1 vial MEDS 11/18/17 08:00 Active Nitroglycerin/D5w [Nitroglycerin] 25 mg IV 10 mcg/min Diltiazem HCl [Cardizem] MEDS 11/18/17 09:00 Ordered 60 mg PO Q12HR Ipratropium/Albuterol Neb [Duoneb] MEDS 11/18/17 07:28 Stat 1 vial NEB ONCE STA Ipratropium/Albuterol Neb [Duoneb] MEDS 11/18/17 07:31 Stat 1 vial NEB ONCE STA Ipratropium/Albuterol Neb [Duoneb] MEDS 11/18/17 07:49 Stat 1 vial NEB ONCE STA Ipratropium/Albuterol Neb [Duoneb] MEDS 11/18/17 12:00 Ordered 1 vial NEB RTQ6H Methylprednisolone Sod Succ/Pf [Solu-Medrol 125 mg] MEDS 11/18/17 07:41 Stat 125 mg IVP ONCE STA Methylprednisolone Sod Succ/Pf [Solu-Medrol 40 mg] MEDS 11/18/17 13:00 Ordered 60 mg IVP Q8HR Nitroglycerin [Nitrostat] MEDS 11/18/17 08:56 Ordered 0.4 mg SL PRN PRN Nitroglycerin/D5w [Nitroglycerin] 250 ml MEDS 11/18/17 07:25 Discontinued IV .STK-MED Potassium Chloride [Klor-Con 10] MEDS 11/18/17 09:00 Ordered 20 meq PO BID SODIUM CHLORIDE 0.9% @ 100 MLS/HR(500ml) MEDS 11/18/17 08:51 Ordered Sodium Chloride 0.9% [Sodium Chloride] 500 ml IV 100 mls/hr Sotalol HCl [Betapace] MEDS 11/18/17 09:00 Ordered 80 mg PO BID Vancomycin HCl [Vancomycin] 1 gm MEDS 11/18/17 08:52 Ordered 0.9 % Sodium Chloride [Sodium Chloride] 250 ml IV ONCE CHEST, 1V AP ONLY Stat RADS 11/18/17 07:30 Ordered Medications Generic Name Dose Route Start Last Admin Trade Name Freq PRN Reason Stop Dose Admin Albuterol/Ipratropium 1 vial 11/18/17 12:00 Duoneb NEB RTQ6H AURY Aspirin 81 mg 11/19/17 08:00 Aspirin Chewable PO DAILYWM AURY Diltiazem HCl 60 mg 11/18/17 09:00 Cardizem PO Q12HR AURY Nitroglycerin/Dextrose 25 mg/ 250 mls @ 6 mls/hr 11/18/17 08:00 11/18/17 07: 34 DEXTROSE 5 % IN WATER IV 10 mcg/min .Q24H AURY 6 mls/hr Protocol Administration 10 MCG/MIN Sodium Chloride 500 mls @ 100 mls/hr 11/18/17 08:51 Sodium Chloride IV 11/18/17 13:50 .Q5H STA Vancomycin HCl 1 gm/ Sodium 250 mls @ 250 mls/hr 11/18/17 08:52 Chloride IV 11/18/17 09:51 ONCE STA Ceftriaxone Sodium 1 gm/ 50 mls @ 75 mls/hr 11/18/17 09:00 Sodium Chloride IV DAILY AURY Methylprednisolone Sodium Succinate 60 mg 11/18/17 13:00 Solu-Medrol 40 Mg IVP Q8HR AURY Nitroglycerin 0.4 mg 11/18/17 08:56 Nitrostat SL PRN PRN Angina Non-Formulary Medication 40 mg 11/18/17 09:00 Atorvastatin Calcium [Atorvastatin Calcium] PO DAILY AURY Sodium Chloride 1 syr 11/18/17 07:27 11/18/17 07:59 Saline Flush IVF 1 syr PRN PRN Administration To flush IV Discontinued Medications Generic Name Dose Route Start Last Admin Trade Name Freq PRN Reason Stop Dose Admin Albuterol/Ipratropium 1 vial 11/18/17 07:28 11/18/17 07:33 Duoneb NEB 11/18/17 07:29 1 vial ONCE STA Administration Albuterol/Ipratropium 1 vial 11/18/17 07:31 11/18/17 07:58 Duoneb NEB 11/18/17 07:32 1 vial ONCE STA Administration Albuterol/Ipratropium 1 vial 11/18/17 07:49 Duoneb NEB 11/18/17 07:50 ONCE STA Ceftriaxone Sodium 1 gm/ 50 mls @ 75 mls/hr 11/18/17 07:41 11/18/17 08:05 Sodium Chloride IV 11/18/17 08:20 75 mls/hr ONCE STA Administration Methylprednisolone Sodium Succinate 125 mg 11/18/17 07:41 11/18/17 08:01 Solu-Medrol 125 Mg IVP 11/18/17 07:42 125 mg ONCE STA Administration Vital Signs: Temp Pulse Resp BP Pulse Ox 11/18/17 07:34 99 H 28 H 210/137 H 11/18/17 07:21 96.9 F L 104 H 26 H 210/137 H 94 L Departure - Departure Time of Disposition: 08:58 Disposition: ADMITTED INPATIENT Discharge Problem: Acute respiratory failure Qualifiers: Respiratory failure complication: unspecified whether with hypoxia or hypercapnia Qualified Code(s): J96.00 - Acute respiratory failure, unspecified whether with hypoxia or hypercapnia Instructions: COPD (Chronic Obstructive Pulmonary Disease) (ED) Condition: Good Pt referred to PMD for follow-up: Yes IPMP verified?: No Additional Instructions: Please call your Family Physician as soon as possible to schedule a follow-up appointment. Allergies/Adverse Reactions: Allergies No Known Allergies Allergy (Verified 11/18/17 07:45) Home Medications: Ambulatory Orders Atorvastatin Calcium 40 mg PO DAILY 08/30/14 Nitroglycerin [Nitrostat] 0.4 mg SL PRN PRN 08/30/14 Potassium Chloride [Klor-Con 10] 20 meq PO BID 08/30/14 Sotalol HCl [Sotalol] 80 mg PO BID 08/30/14 Albuterol Sulfate [Proair Hfa] 2 puff IH Q4H PRN 07/14/15 Aspirin [Aspirin Chewable] 81 mg PO DAILYWM 07/14/15 Calcium Carb, Citrate/Vit D3 [Citracal + D ER Tablet] 1 each PO DAILY 07/14/15 Tiotropium [place] [Spiriva] 18 mcg IH DAILY 07/14/15 Tramadol HCl [Ultram] 50 mg PO Q6H PRN #14 tablet 06/11/17 Fluticasone/Vilanterol [Breo Ellipta Inhaler] 1 each IH DAILY 06/24/17 Esomeprazole Magnesium [Nexium] 40 mg PO QDAC 07/25/17 Apixaban [Eliquis] 5 mg PO BID #60 tablet 07/27/17 Diltiazem HCl [Cardizem] 60 mg PO Q12HR #60 tablet 07/27/17 Acetaminophen [Tylenol] 1,000 mg PO Q6H PRN 11/18/17 Azithromycin 250 mg PO DIRECTED 11/18/17 Prednisone 10 mg PO BIDWM 11/18/17 Disposition Discussed With: Patient, Family
[2017-11-18] MEDS ORDERED: ROCEPHIN ONE (07:49)
--- NOTE | 2017-11-18 07:56 | DI ---
EXAM: Single frontal view of the chest HISTORY: Acute shortness of breath. COMPARISON: CT chest 07/24/2017 and Chest x-ray 06/24/2017 with multiple priors FINDINGS: Cardiomediastinal silhouette is unremarkable. The lungs are hyperinflated with no acute co nsolidation. There is architectural distortion consistent with emphysema most pronounced in the lung apices. The osseous structures are unremarkable. IMPRESSION: No acute consolidation with findings consistent with emphysema.
[2017-11-18] MEDS ORDERED: NITROGLYCERIN 25 MG in PREMIX D5W 250 ML VIAL 1 VIAL IV SCH (08:00)
[2017-11-18] MEDS ORDERED: SODIUM CHLORIDE 500 ML IV STA ×2 (08:51→14:37)
[2017-11-18] MEDS ORDERED: VANCOMYCIN 1 GM in SODIUM CHLORIDE 250 ML IV STA (08:52)
[2017-11-18] MEDS ORDERED: NITROSTAT SL PRN (08:56)
[2017-11-18] MEDS ORDERED: ELIQUIS PO SCH (09:00)
[2017-11-18] MEDS ORDERED: NON-FORMULARY MEDICATION (Potassium Chloride [Klor-Con 10] 20 MEQ) PO SCH (09:00)
[2017-11-18] MEDS ORDERED: CARDIZEM PO SCH (09:00)
[2017-11-18] MEDS ORDERED: BETAPACE PO SCH (09:00)
[2017-11-18] MEDS ORDERED: NON-FORMULARY MEDICATION (Atorvastatin Calcium [Atorvastatin Calcium] 40 MG) PO SCH (09:00)
[2017-11-18] MEDS ORDERED: K-DUR PO SCH (10:00)
[2017-11-18 10:22] VITALS: TEMP 98; BMI 23.4
[2017-11-18] MEDS ORDERED: SODIUM CHLORIDE 500 ML IV SCH (10:30)
[2017-11-18] MEDS ORDERED: ULTRAM PO PRN (11:41)
[2017-11-18] MEDS ORDERED: DUONEB NEB SCH (12:00)
[2017-11-18] MEDS ORDERED: SOLU-MEDROL 125 MG IVP SCH (13:00)
[2017-11-18] MEDS ORDERED: TORADOL PO SCH (13:30)
[2017-11-18] MEDS ORDERED: TORADOL IVP SCH (13:30)
[2017-11-18] MEDS ORDERED: NICODERM 21 MG TD SCH (13:30)
[2017-11-18] MEDS: XANAX PO SCH ×2 (13:46→15:19)
[2017-11-18] MEDS ORDERED: ATIVAN IVP STA (13:50)
[2017-11-18] MEDS ORDERED: AMIDATE IVP STA ×2 (13:52→14:00)
[2017-11-18] MEDS ORDERED: ANECTINE IVP STA ×2 (13:53→14:00)
[2017-11-18] MEDS ORDERED: SUBLIMAZE IVP STA (14:12)
[2017-11-18] MEDS ORDERED: DIPRIVAN 100 ML VIAL 1,000 MG in PREMIX INFUSION 100 ML VIAL 1 VIAL IV SCH (14:12)
[2017-11-18] MEDS ORDERED: VERSED IVP STA (14:12)
--- NOTE | 2017-11-18 14:51 | ED.PDOC ---
Procedures - Intubation Time of Intubation: 14:13 Medications: Yes: Norcuron, Succinylcholine, Versed, Propofol, Other (fentanyl 50 mcg, see nsg notes for times and dosages of meds) Type of Tube Used: Endotracheal Tube Size: 7.5 Cricoid Pressure Used: Yes Tube Wasserman Used: Yes Position of Tube at Lip: 24 Number of Attempts: 1 Suction Used: Yes Glidescope Used: No CO2 Detector Used: Yes Lung Sounds Equal Bilaterally: Yes Intubation Complications: Present: No complications Tube Inserted By: shilpa kim CRNA/Dr Goode Tube Placement Verified by X-ray: Yes Conscious Sedation - Pre-op Assessment Weight: 168 lb 3.403 oz Surgical History: CARDIAC STENT. KNEE SURGERY - Medical History Past Medical History: Hypertension, [place], COPD, Arthritis - Physical Exam Heart Rate/Rhythm: Regular Rhythm, Tachycardia
--- NOTE | 2017-11-18 15:10 | DI ---
EXAM: Chest one view, frontal view only. HISTORY: Intubation. COMPARISON: Earlier the same day at 8:39 a.m.. FINDINGS: Two images were provided. The first image demonstrates the endotracheal tube tip to be at the C7 level. The second image demonstrates the tip to be just below the level of medial clavicles, above the becky. The heart size is normal. There is no pulmonary vascular congestion. Chronic in terstitial changes again noted. Otherwise, the lungs are clear. No pleural effusion or pneumothorax is seen. No acute osseous abnormality is identified. IMPRESSION: Endotracheal tube in satisfactory position.
[2017-11-18] MEDS ORDERED: LIPITOR PO SCH (17:00)
[2017-11-18 18:48] VITALS: BP 135/76
[2017-11-19] MEDS ORDERED: ASPIRIN CHEWABLE PO SCH (08:00)
[2017-11-19] MEDS ORDERED: ROCEPHIN 1 GM in SODIUM CHLORIDE 50 ML IV SCH (09:00)
--- NOTE | 2017-11-20 09:43 | SSS ---
DATE OF SERVICE: 11/18/17 HISTORY OF PRESENT ILLNESS: 72-year-old white male was brought to the emergency room with respiratory distress. The patient's FI02 was 28% that is 2L. His p02 was 76 with pc02 of 52 with pH of 7.30 with 93% saturation. The patient was partially compensated with respiratory acidosis. Duration of symptoms nearly 12 to 24 hours. The patient also had blood pressure of 210/140 in the emergency room, respiratory rate of 28/min. REVIEW OF SYSTEMS: CONSTITUTIONAL: Fatigue and weakness. No night sweats. No malaise, lethargy. No fever or chills. HEENT: Eyes: No visual changes. No eye pain. No eye discharge. ENT: No runny nose. No epistaxis. No sinus pain. No sore throat. No odynophagia. No ear pain. No congestion. RESPIRATORY: Cough and congestion. No hemoptysis. Shortness of breath with wheezing. CARDIOVASCULAR: Shortness of breath with cough and congestion. No angina symptoms. No CHF symptoms. No atypical chest pain for CAD. No palpitations. No PND. No orthopnea. GASTROINTESTINAL: No abdominal pain. No nausea or vomiting. No diarrhea or constipation. No hematemesis. No hematochezia. GENITOURINARY: No dysuria. No hematuria. No obstructive symptoms. No discharge. No pain. No significant abnormal bleeding. MUSCULOSKELETAL: No musculoskeletal pain. No joint swelling. NEUROLOGICAL: Awake, alert, oriented to time, place and person. No headache. No neck pain. No syncope. No seizures. No dizziness. PSYCHIATRIC: Not anxious. No depression. No suicidal thoughts. No homicidal thoughts. SKIN: No rash. No lesions. No wounds. ENDOCRINE: No unexplained weight loss. No weight gain. HEMATOLOGIC/LYMPHATIC: No anemia. No purpura. No petechiae. No prolonged or excessive bleeding. No palpable lymph nodes. PERSONAL/FAMILY HISTORY/SOCIAL HISTORY: The patient is , lives with the . He is a heavy smoker. He drinks socially. The patient's condition has worsened ever since his son practically disappeared in March of 2017. He does all activities of daily living. PAST MEDICAL/SURGICAL HISTORY: History of heavy smoking Chronic lung disease, end stage Coronary artery disease Congestive heart failure Hypertension Dyslipidemia Osteoporosis Kyphosis Dyslipidemia PHYSICAL EXAMINATION: GENERAL: The patient is oriented to time, place and person. VITAL SIGNS: Temperature 97.8, pulse 90/min, respiratory rate 17, BP 160/94, pulse ox 96% with 2L. HEENT: Head normocephalic, atraumatic. Eyes: Extraocular muscles are intact. Pupils are equal, round and reactive to light and accommodation. Ears: No lesions. Nose appeared normal. Throat: No exudate or erythema. Mucous membranes dry. NECK: Supple. No JVD, no carotid bruit. No lymphadenopathy or thyromegaly. LUNGS: Bilateral wheeze. Air entry is acceptable with prolonged expiration. Percussion note normal. Chest symmetrical. HEART: PMI not palpable on auscultation. S1, S2, no S3. No murmurs. No cyanosis or clubbing. No ascites. Pulses: Dorsalis pedis and posterior tibial pulses +1 bilaterally. ABDOMEN: Soft. Nontender. Bowel sounds active. No CVA tenderness. No mass felt. EXTREMITIES: No pedal edema. Full range of motion of all extremities, equal. NEUROLOGIC: Deep tendon reflexes normal. No focal deficit. Cranial nerves II through XII are grossly intact. No headache, no double vision or headache. SKIN: Dry. Intact. Turgor - normal. LYMPHATIC: No palpable lymph nodes/no lymphedema. MUSCULOSKELETAL: Normal joints with no swelling. Muscle tone is normal. Old/present records reviewed Office records reviewed. ALLERGIES: NKDA MEDICATIONS: Atorvastatin 40 mg p.o. daily Nitroglycerin p.r.n. sublingual Sotalol 80 mg twice a day Nebs - ProAir HFA two puffs twice a day Aspirin 81 mg p.o. daily Spiriva 18 mcg inhalation daily Nexium 40 mg p.o. q.a.m. Eliquis 5 mg p.o. twice a day Cardizem 60 mg twice a day The patient is on Azithromycin and Prednisone from 11/18 - was called in LABS/EKG'S/X-RAY/ECHO/ABG: ABG as mentioned above. Hemoglobin 14, hematocrit 41, WBC 10,800, normal differential. Creatinine 0.6, BUN 12, potassium 4.2, procalcitonin normal. PROGRESS NOTES: See EMR. RECOMMENDATIONS/PLAN: 1. Give IV fluids 2. Watch for fluid overload 3. Cardizem 60 mg p.o. twice a day 4. Rocephin 1 gm q.24 5. Solu-Medrol 60 mg q.8 6. Aspirin one a day 7. Duonebs q.6 8. Vancomycin 1 gm for now 9. Telemetry 10. Cardiac markers 11. Continue the rest of the medications as before. 12. The patient is anxious so will give Ativan 0.5 mg. DIAGNOSES: 1. ACUTE EXACERBATION OF COPD WITH BILATERAL WHEEZING 2. CORONARY ARTERY DISEASE WITH STENT 3. SMOKING WITH SEVERE CHRONIC LUNG DISEASE 4. HYPERTENSION SEVERE 5. DYSLIPIDEMIA 6. DEHYDRATION HOSPITAL COURSE: The patient is a lot better. His oxygen saturation improved. His overall status improved remarkably within a couple of hours after he settled down in the Intensive Care Unit. He wanted to go to the bathroom to move his bowels. Bed commode was used- being transferred from bed to bedside commode he was fine but after he was done with his bowel movements taking back to the bed, the patient went into severe respiratory distress. Emergency room physician happened to be checking on him and found him to be in severe respiratory distress, called me and arrangements for transfer was made. The patient was intubated because of severe respiratory distress and hypoxemia by ER attending, was transferred to [facility] for further care. FINAL DIAGNOSIS: 1. ACUTE RESPIRATORY FAILURE 2. ACUTE EXACERBATION OF COPD 3. HEAVY SMOKER 4. CORONARY ARTERY DISEASE WITH STENT 5. SEVERE HYPERTENSION 6. DYSLIPIDEMIA 7. NONCOMPLIANCE CONDITION: Stable but critical PROGNOSIS: Poor considering patient's lifestyle and multiple end-stage medical problems, noncompliance. TIME SPENT: More than 70 minutes. MTDD
--- NOTE | 2017-11-20 09:45 | PN ---
CODING FOR BILLING SAME DAY HISTORY PHYSICAL/DISCHARGE SUMMARY LEVEL 5 MTDD
== END 2017-11-18 15:25 | disposition short-term general hospital (02) | DRG 189 ==
LOC: ED 07:20 → SCU 09:02
PROVIDERS: ADMIT Internal Medicine; ATTEND Internal Medicine
PROC: 0BH17EZ Insertion of Endotracheal Airway into Trachea, Via Natural or Artificial Opening (ICD-10-PCS; principal; 2017-11-18)
DX: J96.01 Acute respiratory failure with hypoxia (principal); J44.1 Chronic obstructive pulmonary disease with (acute) exacerbation; E87.2 Acidosis; R61 Generalized hyperhidrosis; I10 Essential (primary) hypertension; I25.2 Old myocardial infarction; I25.10 Atherosclerotic heart disease of native coronary artery without angina pectoris; I48.91 Unspecified atrial fibrillation; I50.9 Heart failure, unspecified; E78.5 Hyperlipidemia, unspecified; F17.210 Nicotine dependence, cigarettes, uncomplicated; Z95.5 Presence of coronary angioplasty implant and graft; Z91.19 Patient's noncompliance with other medical treatment and regimen; Z79.01 Long term (current) use of anticoagulants; Z79.899 Other long term (current) drug therapy
CPT/HCPCS: 36415; 80053; 82550; 82803; 84145; 84484; 85025; 85610; 85730; 87040; 93005; 93010; 94002; 94640; 96365; 96368; 96375; 99284